=== PATIENT | female | born 1935 | race Caucasian/White ===

== ENCOUNTER 2017-05-16 15:48 | Emergency (ER) | payer OTHER ==
[~2017-05-16] VITALS: Ht 162.6 cm; Wt 68.0 kg
[~2017-05-16 15:48] MED LIST: AMIL5TAB15 PO; APIX5TAB3 PO; BRIM5DRO4 OP; CHOL20009 PO; CIPR500T94 PO; Cephalexin PO; Doxycycline Hyclate PO; FLEC150T PO; GLUC1TAB71 PO; LOSA25TA4 PO; MAGN400T3 PO; METO-239 PO; METO25TA2 PO; METO25TA4 PO; NEBI10TA3 PO; OMEP40CA5 PO; OXYC-327 PO; PHEN100T82 PO; PRAV40TA2 PO; TROL177. TP; Vesicare PO
--- NOTE | 2017-05-16 16:52 | RAD ---
3 views right elbow 05/16/2017 CLINICAL INDICATION: Fall with left elbow pain. COMPARISON: None. FINDINGS: There is a complete fracture of the olecranon process with moderate distraction and mild angulation. No evidence of fracture of the distal humerus or proximal radius. There is a small, 0.6 cm, ossific density at the medial aspect of the elbow on the AP view which may represent an ossific density on the lateral view at the level of the elbow articulation. There are multiple additional small smoothly marginated ossific densities about the elbow. Moderate elbow joint effusion. Large soft tissue swelling posterior elbow. IMPRESSION: 1. Complete fracture of the olecranon process with intra-articular extension and moderate distraction. 2. No evidence of radial head dislocation or coronoid process involvement. 3. Subcentimeter ossific density at the medial aspect of the elbow, likely represents a displaced fracture fragment. 4. Significant soft tissue swelling posterior elbow. Electronically signed by: Chuy Steele MD (05/16/2017 4:49 PM) [id number]
--- NOTE | 2017-05-16 17:00 | RAD ---
CT head and cervical spine without contrast 05/06/2017 CLINICAL INDICATION: Multiple falls with head trauma. COMPARISON: None. TECHNIQUE: Multiple CT images of the head and cervical spine were obtained without contrast. *One or more of the following individualized dose reduction techniques were utilized for this examination: 1. Automated exposure control. 2. Adjustment of the mA and/or kV according to patient size. 3. Use of iterative reconstruction technique. FINDINGS: Head: No acute intracranial hemorrhage or extra-axial fluid collection. No midline shift. The basal cisterns are patent. Mild generalized cerebral atrophy. The visualized mastoid air cells and paranasal sinuses are well aerated. Cervical spine: Minimal grade 1 retrolisthesis measuring 2 mm the foreign C5 and C5 on C6. The vertebral body heights are maintained. No evidence of acute cervical spine fracture. Atlantoaxial articulation is maintained. There is multilevel cervical disc degeneration with disc space narrowing, endplate sclerosis and marginal osteophyte formation to a moderate degree at C4-C5 and C5-C6. In conjunction with uncovertebral and facet hypertrophy, there is multilevel neural foraminal narrowing, greatest to a moderate degree on the right at C4-C5 and C5-C6. No significant spinal canal narrowing. There is calcified atheromatous disease of the common carotid arteries. The visualized lung apices are clear. IMPRESSION: Head: 1. No acute intracranial hemorrhage. 2. Mild generalized cerebral atrophy. Cervical spine: 1. No acute cervical spine fracture or traumatic malalignment. 2. Multilevel cervical spondylosis, as detailed above. Electronically signed by: Chuy Steele MD (05/16/2017 4:57 PM) [id number]
--- NOTE | 2017-05-16 17:04 | PHYS DOC ---
Past History Past Medical History: A-Fib, GERD, High Cholesterol, Hypertension, UTI Past Surgical History: Pacemaker, Other Alcohol Use: None Drug Use: None Adult General Chief Complaint Chief Complaint: ELBOW PROBLEM HPI HPI This is a pleasant 82-year-old female presenting to the emergency department after feeling weak and fell backwards landing on her right elbow and hitting the right side of her head. She denies passing out or loss of consciousness. After falling she was able to ambulate, however has swelling and pain in her right elbow along with a mild headache. She denies fevers or chills. She has a history of dehydration. Past medical history high blood pressure, afib, GERD and hyperlipidemia. Patient does take blood thinners. Eliquis 5 mg once a day. Past surgical history bilateral hip replacements and pacemaker. Allergies per EMR. Review of systems is negative for chest pain shortness of breath abdominal pain nausea vomiting. She denies any hip pain after walking. All other review of systems is negative unless otherwise noted in history of present illness. ED course: 82-year-old female presenting to the emergency department after falling and injuring her right elbow and hitting her head. On arrival she is GCS of 15. She is well-appearing she has an abrasion on her right forehead without laceration. No depressed skull fracture. Her elbow is swollen and painful to palpation with very minimal range of motion due to pain. X-ray of the elbow shows a fracture. Head CT obtained along with neck CT. CT of the head and neck is negative for acute pathology. I discussed the case with our orthopedic surgeon Dr. Bower who recommends transfer to [facility] for admission to the hospital for surgical repair. The patient was then transferred for further treatment. Review of Systems Review of Systems SEE ABOVE. Allergies Allergies Allergies Coded Allergies Type Severity Reaction Last Updated Verified Sulfa (Sulfonamide Antibiotics) Allergy Intermediate Hives 05/16/17 Yes acetaminophen Allergy Intermediate Rash 04/23/15 Yes codeine Allergy Intermediate Rash 04/23/15 Yes metaxalone Allergy Intermediate Unknown 04/23/15 Yes nitrofurantoin Allergy Intermediate Itching 04/23/15 Yes sulfamethoxazole Allergy Intermediate Rash 04/23/15 Yes trimethoprim Allergy Intermediate Rash 04/23/15 Yes Physical Exam Physical Exam SEE ABOVE General Appearance alert, cooperative, no distress, responsive Head Normocephalic, with mild abrasion to the right forehead. Eyes conjunctivae/corneas clear. PERRL, EOM's intact. Ears normal external ears Nose Nares normal. Septum midline. Mucosa normal. No drainage or sinus tenderness. Throat no blood or lacerations, normal alignment Neck supple, symmetrical, trachea midline Back/Spine symmetric, normal curvature. ROM normal, no abrasions, no tenderness to palpation, no step-offs Lungs clear to auscultation bilaterally Chest Wall normal ribcage without tenderness to palpation, crepitus or emphysema Heart reg rate and regular rhythm, S1, S2 normal, no murmur, click, rub or gallop Abdomen soft, non-tender. Bowel sounds normal. No masses, no organomegaly Pelvic stable Extremities patient's right upper extremity shows deformity of the right elbow. Otherwise nontender wrist and shoulder. Normal 2 second cap refill on the right upper extremity with palpable pulse and normal sensation in the hand. Normal motor function of the hand as well. The remainder the extremities are nontender with normal range of motion of the joints. 2 second cap refill distally palpable pulse and normal motor and sensory function of the distal extremities otherwise. Pulses 2+ and symmetric Skin Skin color, texture, turgor normal. No rashes or lesions Neurologic Grossly normal Eye opening: (4) spontaneous Best motor response: (6) obeys verbal command Best verbal response: (5) oriented and converses Total [place] (E + M + V) = 15 Current Patient Data Vital Signs Vital Signs Date Time Temp Pulse Resp B/P (MAP) Pulse Ox O2 Delivery O2 Flow Rate FiO2 05/16/17 15:50 97.6 60 18 97 Room Air EKG EKG [] Radiology/Procedures Radiology/Procedures [] Course & Med Decision Making Course & Med Decision Making Pertinent Labs and Imaging studies reviewed. (See chart for details) [] Dragon Disclaimer Dragon Disclaimer This electronic medical record was generated, in whole or in part, using a voice recognition dictation system. Departure Departure: Impression: Primary Impression: Elbow pain, right Additional Impressions: Abrasion head HX: anticoagulation Disposition: 02 [place]: [place] Referrals: ADELA ENGEL (PCP) Problem Qualifiers TRICE ALLEN MD May 16, 2017 17:04
[2017-05-16 17:15] LABS: BASO % 1 % (0-3); EOS # 0.3 x10^3/uL (0.0-0.7); EOS % 4 % (0-3); HEMATOCRIT 36.3 % (36.0-47.0); HEMOGLOBIN 12.4 g/dL (12.0-15.5); LYMPH # 0.7 x10^3/uL (1.0-4.8); LYMPH % 8 % (24-48); MEAN CORPUSCULAR HEMOGLOBIN 34 pg (25-35); MEAN CORPUSCULAR HGB CONC 34 g/dL (31-37); MEAN CORPUSCULAR VOLUME 99 fL (79-100); MONO # 0.7 x10^3/uL (0.0-1.1); MONO % 8 % (0-9); NEUT # 7.1 x10^3uL (1.8-7.7); NEUT % 80 % (31-73); PLATELET COUNT 249 x10^3/uL (140-400); RED BLOOD COUNT 3.67 x10^6/uL (3.50-5.40); RED CELL DISTRIBUTION WIDTH 13.2 % (11.5-14.5); WHITE BLOOD COUNT 8.8 x10^3/uL (4.0-11.0)
[2017-05-16 17:24] LABS: ALBUMIN 3.6 g/dL (3.4-5.0); ALK PHOS 80 U/L (46-116); ALT (SGPT) 22 U/L (14-59); ANION GAP 9 (6-14); AST (SGOT) 33 U/L (15-37); BLOOD UREA NITROGEN 19 mg/dL (7-20); CARBON DIOXIDE 23 mmol/L (21-32); CHLORIDE 94 mmol/L (98-107); CREATININE 1.4 mg/dL (0.6-1.0); DIRECT BILIRUBIN < 0.1 mg/dL (0.0-0.2); GFR 35.9; GLUCOSE 135 mg/dL (70-99); LIPASE 252 U/L (73-393); POTASSIUM 4.8 mmol/L (3.5-5.1); SODIUM 126 mmol/L (136-145); TOTAL BILIRUBIN 0.4 mg/dL (0.2-1.0); TOTAL PROTEIN 7.6 g/dL (6.4-8.2)
[2017-05-16 17:39] LABS: BILIRUBIN,URINE NEG (NEG); CLARITY,URINE CLOUDY; COLOR,URINE YELLOW; GLUCOSE,URINE NEG (NEG)
[2017-05-16 17:40] LABS: BACTERIA,URINE 0 /HPF (0-FEW); NITRITE,URINE NEG (NEG); SQUAMOUS EPITHELIAL CELL,UR MANY /LPF; UROBILINOGEN,URINE 0.2 mg/dL (0.2 mg/dL); WBC,URINE >40 /HPF (0-4)
--- NOTE | 2017-05-16 18:16 | EKG ---
[address] [address] Test Date: 2017-05-16 Test Time: 17:07:37 Pat Name: JONES RESENDEZ Department: Room: Gender: F Therapeutic Program Worker: ANEESH : 1935 Requested By: TRICE ALLEN Order Number: [id number] Reading MD: Measurements Intervals [place] Rate: 60 P: 0 [place]: 212 QRS: -72 QRSD: 240 T: 97 QT: 532 QTc: 537 Interpretive Statements SINUS RHYTHM ABNORMAL LEFT AXIS DEVIATION NON SPECIFIC INTRAVENTRICULAR BLOCK QRS(T) CONTOUR ABNORMALITY CONSIDER ANTEROSEPTAL MYOCARDIAL DAMAGE ABNORMAL ECG RI6.01 No previous ECG available for comparison
[2017-05-16] MEDS ORDERED: ONDANSETRON PF 4 MG/2 ML VIAL. IV ONE (18:45)
[2017-05-16 19:28] VITALS: BP 197/83
== END 2017-05-16 19:30 | disposition short-term general hospital (02) ==
LOC: ER 15:48
DX: M25.521 Pain in right elbow (principal); S00.81XA Abrasion of other part of head, initial encounter; I48.91 Unspecified atrial fibrillation; E78.00 Pure hypercholesterolemia, unspecified; I10 Essential (primary) hypertension; K21.9 Gastro-esophageal reflux disease without esophagitis; Z87.440 Personal history of urinary (tract) infections; Z79.01 Long term (current) use of anticoagulants; Z95.0 Presence of cardiac pacemaker; Z88.2 Allergy status to sulfonamides; Z88.6 Allergy status to analgesic agent; Z88.5 Allergy status to narcotic agent; Z88.1 Allergy status to other antibiotic agents; Z88.8 Allergy status to other drugs, medicaments and biological substances; W18.09XA Striking against other object with subsequent fall, initial encounter; Y93.89 Activity, other specified; Y99.8 Other external cause status; Y92.89 Other specified places as the place of occurrence of the external cause
CPT/HCPCS: 36415; 70450; 72125; 73080; 80048; 80076; 81001; 83690; 84484; 85025; 87086; 93005; 96374; 96375; 96376; 99285; J2405; J3010

== ENCOUNTER 2018-05-18 14:46 | Observation (INO) | payer OTHER ==
[~2018-05-18] VITALS: Ht 162.6 cm; Wt 67.4 kg
[~2018-05-18 14:46] MED LIST changes: +APIXABAN 5 MG TABLET. PO SCH; +BRIMONIDINE 0.2% OPHTH SOLUTION 5ML BOTTLE. OU SCH; +DICLOFENAC SODIUM 1% TOPICAL GEL 100GM TUBE. TP SCH; +DRONEDARONE HCL 400 MG TABLET PO SCH; +LOSA25TA11 PO; -LOSA25TA4 PO; -OXYC-327 PO; +OXYC1TAB19 PO
[2018-05-18] MEDS ORDERED: KETOROLAC 30 MG/ML VIAL. ONE (15:27)
[2018-05-18] MEDS ORDERED: IV NORMAL SALINE 1,000ML 1,000 ML IV ONE (15:30)
[2018-05-18] MEDS ORDERED: KETOROLAC 30 MG/ML VIAL. IV ONE (15:30)
--- NOTE | 2018-05-18 16:07 | RAD ---
CT study of the abdomen and pelvis without contrast Clinical indications: Bilateral flank pain with hematuria. COMPARISON: None available. TECHNIQUE: Noncontrast helical CT scanning of the abdomen and pelvis was performed. Without contrast, the sensitivity to detect organ pathology and GI tract pathology is decreased. PQRS compliance Statement One or more of the following individualized dose reduction techniques were utilized for this study: 1. Automated exposure control 2. Adjustment of the mA and/or kV according to patient size 3. Use of iterative reconstruction technique FINDINGS: The liver and spleen and pancreas are unremarkable on the noncontrast study. Gallbladder is normal and no extrahepatic biliary ductal dilatation is seen. No adrenal mass is evident. No hydronephrosis or hydroureter or ureteral stone or renal stone is evident. Both distal ureters and urinary bladder are obscured due to streaking artifact from metallic prostheses of both hips. There is an small air-fluid level within the anterior aspect of the dome of the urinary bladder. There is calcified atheromatous disease of the abdominal aorta and superior mesenteric artery and both main renal arteries the aorta and celiac artery and the common iliac arteries bilaterally. There is aneurysm of the distal abdominal aorta which measures up to 4.0 cm in greatest dimension. No enlarged abdominal or pelvic lymphadenopathy is evident. No uterine enlargement is seen given the streaking artifact. No dominant ovarian cyst or mass is evident. There is sigmoid diverticulosis present. There is segmental wall thickening of the mid sigmoid colon and this area is not well visualized due to the streaking artifact. This is best seen on images 103 through 107 and series 2. Evaluation for diverticulitis involving the sigmoid colon is difficult to the streaking artifact. No free fluid or free air or mesenteric edema is seen otherwise. A small hiatal hernia is evident. No lung base consolidation is seen. No lytic process is seen. IMPRESSION: Segmental wall thickening of mid sigmoid colon is seen. Sigmoid diverticulosis is seen. Evaluation for diverticulitis is difficult given the streaking artifact from 2 metallic prostheses of the hips. Survey, malignancy is a possibility as well. Direct endoscopy is recommended if this has not been performed recently. Distal abdominal aortic aneurysm measuring up to 4.0 cm in greatest caliber. A small air-fluid level is seen within the urinary bladder which most likely is secondary to recent catheterization or the short length of the female urethra. No obvious urinary bladder wall thickening or adjacent bowel wall thickening is seen to indicate a bladder bowel fistula but this portion of the study is somewhat compromised by the streaking artifact. No urinary tract stone or hydronephrosis or hydroureter. Electronically signed by: Stoney Marquez MD (05/18/2018 4:04 PM) [place] [id number]
[2018-05-18 16:29] LABS: BASO % 0 % (0-3); EOS # 0.4 x10^3/uL (0.0-0.7); EOS % 5 % (0-3); HEMATOCRIT 34.7 % (36.0-47.0); HEMOGLOBIN 11.7 g/dL (12.0-15.5); LYMPH # 0.8 x10^3/uL (1.0-4.8); LYMPH % 10 % (24-48); MEAN CORPUSCULAR HEMOGLOBIN 34 pg (25-35); MEAN CORPUSCULAR HGB CONC 34 g/dL (31-37); MEAN CORPUSCULAR VOLUME 101 fL (79-100); MONO # 0.7 x10^3/uL (0.0-1.1); MONO % 8 % (0-9); NEUT # 6.2 x10^3uL (1.8-7.7); NEUT % 76 % (31-73); PLATELET COUNT 288 x10^3/uL (140-400); RED BLOOD COUNT 3.44 x10^6/uL (3.50-5.40); WHITE BLOOD COUNT 8.1 x10^3/uL (4.0-11.0)
--- NOTE | 2018-05-18 16:43 | PHYS DOC ---
Past History Past Medical History: Other Past Surgical History: Hip Replacement Alcohol Use: None Drug Use: None Adult General Chief Complaint Chief Complaint: FLANK PAIN HPI HPI 83-year-old female presents with increased urinary frequency and dysuria. Patient is concerned about possible kidney stone. She has a history of bladder and kidney infections. She denies fever or chills at home. Patient's also had one episode of vomiting and diarrhea. She has been eating and drinking normally otherwise. Review of Systems Review of Systems Constitutional: Denies fever or chills [] Eyes: Denies change in visual acuity, redness, or eye pain [] HENT: Denies nasal congestion or sore throat [] Respiratory: Denies cough or shortness of breath [] Cardiovascular: No additional information not addressed in HPI [] GI: Denies abdominal pain, nausea, vomiting, bloody stools or diarrhea [] : Dysuria and urinary frequency[] Musculoskeletal: Denies back pain or joint pain [] Integument: Denies rash or skin lesions [] Neurologic: Denies headache, focal weakness or sensory changes [] Endocrine: Denies polyuria or polydipsia [] All other systems were reviewed and found to be within normal limits, except as documented in this note. Current Medications Current Medications Current Medications Medications (Trade) Dose Ordered Sig/Juliana Start Time Stop Time Status Last Admin Dose Admin Ketorolac Tromethamine (Toradol 30mg Vial) 30 mg STK-MED ONCE 05/18/18 15:27 05/18/18 15:37 DC Sodium Chloride 1,000 ml @ 1,000 mls/hr 1X ONCE 05/18/18 15:30 05/18/18 16:29 DC 05/18/18 15:30 1,000 MLS/HR Allergies Allergies Allergies Coded Allergies Type Severity Reaction Last Updated Verified Sulfa (Sulfonamide Antibiotics) Allergy Intermediate Hives 05/16/17 Yes acetaminophen Allergy Intermediate Rash 04/23/15 Yes codeine Allergy Intermediate Rash 04/23/15 Yes metaxalone Allergy Intermediate Unknown 04/23/15 Yes nitrofurantoin Allergy Intermediate Itching 04/23/15 Yes sulfamethoxazole Allergy Intermediate Rash 04/23/15 Yes trimethoprim Allergy Intermediate Rash 04/23/15 Yes Physical Exam Physical Exam Constitutional: Well developed, well nourished, no acute distress, non-toxic appearance. [] HENT: Normocephalic, atraumatic, bilateral external ears normal, oropharynx moist, no oral exudates, nose normal. [] Eyes: PERRLA, EOMI, conjunctiva normal, no discharge. [] Neck: Normal range of motion, no tenderness, supple, no stridor. [] Cardiovascular:Heart rate regular rhythm, no murmur [] Lungs & Thorax: Bilateral breath sounds clear to auscultation [] Abdomen: Bowel sounds normal, soft, suprapubic tenderness, no masses, no pulsatile masses. [] Skin: Warm, dry, no erythema, no rash. [] Back: No tenderness, no CVA tenderness. [] Extremities: No tenderness, no cyanosis, no clubbing, ROM intact, no edema. [] Neurologic: Alert and oriented X 3, normal motor function, normal sensory function, no focal deficits noted. [] Psychologic: Affect normal, judgement normal, mood normal. [] Current Patient Data Vital Signs Vital Signs Date Time Temp Pulse Resp B/P (MAP) Pulse Ox O2 Delivery O2 Flow Rate FiO2 05/18/18 15:04 98.1 60 18 100 Room Air Lab Results Laboratory Tests Test 05/18/18 15:56 White Blood Count 8.1 x10^3/uL (4.0-11.0) Red Blood Count 3.44 x10^6/uL (3.50-5.40) L Hemoglobin 11.7 g/dL (12.0-15.5) L Hematocrit 34.7 % (36.0-47.0) L Mean Corpuscular Volume 101 fL (79-100) H Mean Corpuscular Hemoglobin 34 pg (25-35) Mean Corpuscular Hemoglobin Concent 34 g/dL (31-37) Red Cell Distribution Width 13.0 % (11.5-14.5) Platelet Count 288 x10^3/uL (140-400) Neutrophils (%) (Auto) 76 % (31-73) H Lymphocytes (%) (Auto) 10 % (24-48) L Monocytes (%) (Auto) 8 % (0-9) Eosinophils (%) (Auto) 5 % (0-3) H Basophils (%) (Auto) 0 % (0-3) Neutrophils # (Auto) 6.2 x10^3uL (1.8-7.7) Lymphocytes # (Auto) 0.8 x10^3/uL (1.0-4.8) L Monocytes # (Auto) 0.7 x10^3/uL (0.0-1.1) Eosinophils # (Auto) 0.4 x10^3/uL (0.0-0.7) Basophils # (Auto) 0.0 x10^3/uL (0.0-0.2) EKG EKG [] Radiology/Procedures Radiology/Procedures [] Impressions: CT study of the abdomen and pelvis without contrast Clinical indications: Bilateral flank pain with hematuria. COMPARISON: None available. TECHNIQUE: Noncontrast helical CT scanning of the abdomen and pelvis was performed. Without contrast, the sensitivity to detect organ pathology and GI tract pathology is decreased. PQRS compliance Statement One or more of the following individualized dose reduction techniques were utilized for this study: 1. Automated exposure control 2. Adjustment of the mA and/or kV according to patient size 3. Use of iterative reconstruction technique FINDINGS: The liver and spleen and pancreas are unremarkable on the noncontrast study. Gallbladder is normal and no extrahepatic biliary ductal dilatation is seen. No adrenal mass is evident. No hydronephrosis or hydroureter or ureteral stone or renal stone is evident. Both distal ureters and urinary bladder are obscured due to streaking artifact from metallic prostheses of both hips. There is an small air-fluid level within the anterior aspect of the dome of the urinary bladder. There is calcified atheromatous disease of the abdominal aorta and superior mesenteric artery and both main renal arteries the aorta and celiac artery and the common iliac arteries bilaterally. There is aneurysm of the distal abdominal aorta which measures up to 4.0 cm in greatest dimension. No enlarged abdominal or pelvic lymphadenopathy is evident. No uterine enlargement is seen given the streaking artifact. No dominant ovarian cyst or mass is evident. There is sigmoid diverticulosis present. There is segmental wall thickening of the mid sigmoid colon and this area is not well visualized due to the streaking artifact. This is best seen on images 103 through 107 and series 2. Evaluation for diverticulitis involving the sigmoid colon is difficult to the streaking artifact. No free fluid or free air or mesenteric edema is seen otherwise. A small hiatal hernia is evident. No lung base consolidation is seen. No lytic process is seen. IMPRESSION: Segmental wall thickening of mid sigmoid colon is seen. Sigmoid diverticulosis is seen. Evaluation for diverticulitis is difficult given the streaking artifact from 2 metallic prostheses of the hips. Survey, malignancy is a possibility as well. Direct endoscopy is recommended if this has not been performed recently. Distal abdominal aortic aneurysm measuring up to 4.0 cm in greatest caliber. A small air-fluid level is seen within the urinary bladder which most likely is secondary to recent catheterization or the short length of the female urethra. No obvious urinary bladder wall thickening or adjacent bowel wall thickening is seen to indicate a bladder bowel fistula but this portion of the study is somewhat compromised by the streaking artifact. No urinary tract stone or hydronephrosis or hydroureter. Electronically signed by: Debra Marquez MD (05/18/2018 4:04 PM) [facility] DICTATED AND SIGNED BY: DEBRA MARQUEZ MD DATE: 05/18/18 1604 CC: SOFI LINO DO; ADELA ENGEL Course & Med Decision Making Course & Med Decision Making Pertinent Labs and Imaging studies reviewed. (See chart for details) The patient's labs are significant for anemia with a hemoglobin 11.7. CMP is pending. Her urinalysis does show UTI. I will treat her with 1 g of Rocephin in the ED followed by Cefdinir at home. The patient's CT scan is significant for several findings. See official report from more details. It is suggestive of diverticulitis. I will treat her with Augmentin for 10 days and give her first dose in the ED. The patient's CMP shows an elevated creatinine of 2.3. Review of her chart shows her previous being 1.4. I am unsure if this is chronic or just an acute situation. I am going to admit the patient for further management of all of these issues. Discussed the patient with Dr. Strickland and he has agreed to admit the patient for further management. [] Dragon Disclaimer Dragon Disclaimer This electronic medical record was generated, in whole or in part, using a voice recognition dictation system. Departure Departure: Impression: Primary Impression: UTI (urinary tract infection) Additional Impressions: Diverticulitis Acute kidney injury superimposed on CKD Disposition: ADMITTED INPATIENT Admitting Physician: Glen Strickland Condition: STABLE Referrals: ADELA ENGEL (PCP) Problem Qualifiers Primary Impression: UTI (urinary tract infection) Urinary tract infection type: acute cystitis Hematuria presence: with hematuria Qualified Codes: N30.01 - Acute cystitis with hematuria SOFI LINO DO May 18, 2018 16:43
[2018-05-18 16:44] LABS: CALCIUM 9.3 mg/dL (8.5-10.1); CREATININE 2.3 mg/dL (0.6-1.0); GFR 20.2; POTASSIUM 4.6 mmol/L (3.5-5.1); TOTAL BILIRUBIN 0.5 mg/dL (0.2-1.0); TOTAL PROTEIN 7.9 g/dL (6.4-8.2)
[2018-05-18] MEDS ORDERED: AMOXICILLIN/K CLAV 875/125MG TABLET. PO ONE (16:45)
[2018-05-18] MEDS ORDERED: IV NORMAL SALINE 50ML 50 ML ONE (17:08)
[2018-05-18] MEDS ORDERED: cefTRIAXone SODIUM 1 GM VIAL ONE (17:08)
[2018-05-18] MEDS ORDERED: BRIM5DRO3 OU (17:57)
[2018-05-18] MEDS ORDERED: FURO40TA4 PO (17:57)
[2018-05-18] MEDS ORDERED: DICL100G28 TOP (17:57)
[2018-05-18] MEDS ORDERED: SPIR25TA5 PO (17:57)
[2018-05-18] MEDS ORDERED: METO50TA29 PO (17:57)
[2018-05-18] MEDS ORDERED: DRON400T PO (17:57)
[2018-05-18] MEDS ORDERED: ONDANSETRON PF 4 MG/2 ML VIAL. IV PRN (18:30)
[2018-05-18 21:15] VITALS: BP 183/78
[2018-05-18] MEDS: ACETAMINOPHEN 325 MG TABLET PO PRN (21:50)
[2018-05-18] MEDS: IV NORMAL SALINE 1,000ML 1,000 ML IV SCH (21:51)
[2018-05-18] MEDS ORDERED: LOSA25TA PO (21:55)
[2018-05-18] MEDS ORDERED: OMEP20TA8 PO (21:57)
[2018-05-18] MEDS: APIXABAN 5 MG TABLET. PO SCH (22:40)
[2018-05-18] MEDS: LOSARTAN 25 MG TABLET. PO SCH (22:40)
[2018-05-18] MEDS: PRAVASTATIN 20 MG TABLET. PO SCH (22:40)
[2018-05-18] MEDS: DICLOFENAC SODIUM 1% TOPICAL GEL 100GM TUBE. TP SCH (22:41)
[2018-05-18] MEDS: DRONEDARONE HCL 400 MG TABLET PO SCH (22:41)
[2018-05-18] MEDS: BRIMONIDINE 0.2% OPHTH SOLUTION 5ML BOTTLE. OU SCH (22:41)
[2018-05-18 23:05] VITALS: BP 153/66
[2018-05-19] MEDS: ACETAMINOPHEN 325 MG TABLET PO PRN ×3 (03:30→19:52)
[2018-05-19 05:21] VITALS: BP 124/67
[2018-05-19 06:58] LABS: HEMATOCRIT 31.3 % (36.0-47.0); HEMOGLOBIN 10.6 g/dL (12.0-15.5); RED BLOOD COUNT 3.1 x10^6/uL (3.50-5.40); RED CELL DISTRIBUTION WIDTH 13.1 % (11.5-14.5); WHITE BLOOD COUNT 7.8 x10^3/uL (4.0-11.0)
[2018-05-19 07:01] LABS: CALCIUM 8.6 mg/dL (8.5-10.1); CREATININE 2.1 mg/dL (0.6-1.0); GFR 22.4; POTASSIUM 4.9 mmol/L (3.5-5.1)
[2018-05-19] MEDS: IV NORMAL SALINE 1,000ML 1,000 ML IV SCH ×2 (08:02→21:00)
[2018-05-19] MEDS: DICLOFENAC SODIUM 1% TOPICAL GEL 100GM TUBE. TP SCH ×3 (08:02→20:15)
[2018-05-19] MEDS: BRIMONIDINE 0.2% OPHTH SOLUTION 5ML BOTTLE. OU SCH ×2 (08:02→20:17)
[2018-05-19] MEDS: APIXABAN 5 MG TABLET. PO SCH ×2 (08:03→20:17)
[2018-05-19] MEDS: DRONEDARONE HCL 400 MG TABLET PO SCH ×2 (08:03→20:16)
[2018-05-19] MEDS: CHOLECALCIFEROL (VITAMIN D3) 1,000 UNIT TABLET PO SCH (08:04)
[2018-05-19] MEDS: METOPROLOL SUCC 24HR ER 50 MG TAB.ER.24H. PO SCH (08:04)
[2018-05-19] MEDS: PANTOPRAZOLE 40 MG TABLET. PO SCH (08:04)
[2018-05-19] MEDS: LOSARTAN 25 MG TABLET. PO SCH ×2 (08:06→20:17)
[2018-05-19] MEDS: FUROSEMIDE 20 MG TABLET PO SCH (08:06)
[2018-05-19] MEDS: SPIRONOLACTONE 25 MG TABLET PO SCH (08:06)
[2018-05-19 10:21] VITALS: BP 104/60
[2018-05-19 14:38] VITALS: BP 136/58
--- NOTE | 2018-05-19 15:50 | HP ---
ADMIT DATE: 05/18/2018 HISTORY OF PRESENT ILLNESS: The patient is an 83-year-old female patient who came to the Emergency Room with increased urinary frequency, dysuria. She was concerned about the possibility of kidney stone. She has a history of bladder and kidney infections; however, she denied any chills, rigors, or fever. Her biggest problem is dysuria, frequency. Denied any episodes of vomiting or diarrhea. She was evaluated in the Emergency Room and was admitted with a urinary tract infection. She had a CT scan of the abdomen and pelvis, which was somewhat inconclusive, possibility of diverticulitis, there is some segmental wall thickening of the mid sigmoid colon is seen, sigmoid diverticulosis seen. However, evaluation for the diverticulitis is difficult given the streaking artifacts from 2 metallic prosthesis of the hips. She was started on IV fluid and IV Rocephin and continued with other medication. PAST MEDICAL HISTORY: Significant for hypertension, hyperlipidemia, congestive heart failure, likely chronic diastolic congestive heart failure as well as sick sinus syndrome. PAST SURGICAL HISTORY: Significant for permanent pacemaker placement, bilateral total hip arthroplasty, bilateral carpal tunnel release, trigger finger release, left elbow fracture, bilateral cataract extraction. ALLERGIES: SHE IS ALLERGIC TO SULFA DRUGS, SULFAMETHOXAZOLE, TRIMETHOPRIM, NITROFURANTOIN, METAXALONE, CODEINE, AND ACETAMINOPHEN. MEDICATIONS: She is currently on following medications: She is on apixaban 5 mg twice a day, dronedarone 400 mg twice a day, pravastatin 40 mg 2 tablets at bedtime, metoprolol succinate 50 mg once a day, losartan potassium 75 mg once a day, spironolactone 12.5 mg once a day, diclofenac sodium 1 gram topically 3 times a day, furosemide 20 mg once a day, brimonidine tartrate 1 drop to both eyes, omeprazole 20 mg twice a day, cholecalciferol 2000 international unit once a day. FAMILY HISTORY: She has 2 brothers, both . Her sister of Alzheimer disease and father at age of 77 because of CVA. Mother at age of 77 because of colon cancer. SOCIAL HISTORY: She is , has 1 son. She never smoked, does not drink alcohol. 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 REVIEW OF SYSTEMS: The patient has had bilateral cataract extraction and has also glaucoma, but denied any macular degeneration. Denied any earache, tinnitus, or sensorineural deafness. Denied any nosebleeds, stuffy nose, or postnasal drip. Denied any sore throat, sore tongue, toothache, hoarseness of voice, or difficulty swallowing. Denied any nausea, vomiting, diarrhea, or constipation. Denied any hematemesis, melena, or hematochezia. Did complain of dysuria and frequency, but denied any hematuria. Denied any chest pain, shortness of breath, orthopnea, paroxysmal nocturnal dyspnea. Denied any cough, phlegm, or hemoptysis. Denied any chills, rigors, or fever. Denied any dizziness, lightheadedness, or vertigo. PHYSICAL EXAMINATION: GENERAL: On examining her, she looked well and was clearly in no apparent respiratory distress, slightly pale, but no jaundice, cyanosis, or thyromegaly. No jugular venous distention. No limb edema. VITAL SIGNS: Her heart rate was 60, blood pressure was 176/78, temperature was 97, respiratory rate 20, and oxygen saturation was 98% on room air. HEAD, EYES, EARS, NOSE, AND THROAT: Showed normocephalic, atraumatic. NECK: Supple. HEART: Showed normal first and second heart sounds. No gallop, rub, or murmur. CHEST: Clear to auscultation. No crepitation or rhonchi. ABDOMEN: Distended, soft, nontender. NEUROLOGIC: She is awake, alert, responding appropriately. All cranial nerves intact. EXTREMITIES: She moves extremities without difficulty. She ambulates with a quad cane. LABORATORY DATA: Her urinalysis showed the urine was light yellow, cloudy, it was negative for glucose, bilirubin, ketones, pH was 6, specific gravity was 1.010. There is a trace of protein. There was nitrite positive. There were 3+ leukocyte esterase. Culture and sensitivity is still pending at the time of this dictation. Her white cell count was 8100, hemoglobin 11.7, hematocrit 34, MCV 101, and platelet count of 288,000 with normal manual differential. Her chemistry showed a serum sodium 130, potassium 4.6, chloride 96, bicarbonate 23, anion gap of 11, BUN 41, creatinine 2.3, estimated GFR was 20 mL per minute. Her glucose 117, calcium was 9.3. Total bilirubin, AST, ALT, alkaline phosphatase were normal. Her total protein was 7.9, albumin was 4. IMPRESSION: In summary, this is an 83-year-old female patient who came in with a complaint of recurrent bouts of dysuria, frequency. Her urinalysis was suggestive of a urinary tract infection with positive nitrite and leukocyte esterase. She was started on IV fluid and IV Rocephin. We will continue with that. Apparently, her creatinine was 2.3 and BUN of 41 while in April. A year ago, her creatinine was 1.4. The plan is to continue the IV fluid, IV antibiotic. Await the result of the culture and sensitivity. She was admitted for basically, she has multiple other medical problems including hypertension, hyperlipidemia. She has also atrial fibrillation, glaucoma, and gastroesophageal reflux disease, obviously with acute on chronic kidney injury. JEREMY KIRBY MD DR: BRIAN/phoebe JOB#: [id number] / [id number]
[2018-05-19 19:16] VITALS: BP 164/82
[2018-05-19] MEDS: LACTOBACILLUS RHAMNOSUS GG 1 CAPSULE. PO SCH (20:17)
[2018-05-19] MEDS: PRAVASTATIN 20 MG TABLET. PO SCH (20:17)
--- NOTE | 2018-05-19 21:36 | PN ---
DATE: 05/19/2018 SUBJECTIVE: The patient is resting slightly propped up in bed, stating that she is feeling much better. She has been in and out of bed last night, yesterday; however, today she seemed her infection is improving and she is not as going to the bathroom as often. Her kidney function was also noted to be impaired. Her creatinine was 2.3 and we did start her on IV fluid yesterday. She has also hyponatremia and her creatinine is trending down. Her last creatinine available record is 1.4 year ago. We did contact Dr. Lowe office to get to see if she has any other values in between for comparison. PHYSICAL EXAMINATION: GENERAL: When I examined her today, she looked pale, but no jaundice, cyanosis, or thyromegaly. No jugular venous distension. No lower limb edema. VITAL SIGNS: Her heart rate was 60, blood pressure 136/58, temperature was 97.2, respiratory rate was 20, and oxygen saturation was 99%. The rest of clinical examination is stable, has not really changed. Her intake was 2500 and output was incompletely recorded. LABORATORY DATA: Her lab work this morning showed serum sodium is slightly up at 131, potassium 4.9, chloride 100, bicarbonate 22, anion gap of 9, BUN 39, creatinine 2.1, estimated GFR was 22 mL per minute. Her glucose was 84, calcium was 8.6. ASSESSMENT: Urinary tract infection; culture and sensitivity is still pending at the time of dictation; hyponatremia resolving; acute kidney injury, improving. Her creatinine is down from 2.3-2.1. Other medical problems include hypertension, hyperlipidemia, and congestive heart failure, seems to be clinically well compensated. She is also known to have sick sinus syndrome. JEREMY KIRBY MD DR: BRIAN/phoebe JOB#: [id number] / [id number]
[2018-05-19 22:51] VITALS: BP 145/78
[2018-05-20] MEDS: ACETAMINOPHEN 325 MG TABLET PO PRN (03:35)
[2018-05-20 05:26] VITALS: BP 171/81
[2018-05-20 06:06] LABS: CALCIUM 8.5 mg/dL (8.5-10.1); CREATININE 1.6 mg/dL (0.6-1.0); GFR 30.7; POTASSIUM 5.1 mmol/L (3.5-5.1)
[2018-05-20] MEDS: CHOLECALCIFEROL (VITAMIN D3) 1,000 UNIT TABLET PO SCH (08:55)
[2018-05-20] MEDS: LOSARTAN 25 MG TABLET. PO SCH (08:55)
[2018-05-20] MEDS: APIXABAN 5 MG TABLET. PO SCH (08:55)
[2018-05-20] MEDS: PANTOPRAZOLE 40 MG TABLET. PO SCH (08:55)
[2018-05-20] MEDS: METOPROLOL SUCC 24HR ER 50 MG TAB.ER.24H. PO SCH (08:55)
[2018-05-20] MEDS: LACTOBACILLUS RHAMNOSUS GG 1 CAPSULE. PO SCH (08:55)
[2018-05-20 08:56] VITALS: BP 171/81
[2018-05-20] MEDS: SPIRONOLACTONE 25 MG TABLET PO SCH (08:56)
[2018-05-20] MEDS: DICLOFENAC SODIUM 1% TOPICAL GEL 100GM TUBE. TP SCH (08:56)
[2018-05-20] MEDS: DRONEDARONE HCL 400 MG TABLET PO SCH (08:56)
[2018-05-20] MEDS: FUROSEMIDE 20 MG TABLET PO SCH (08:56)
[2018-05-20] MEDS: BRIMONIDINE 0.2% OPHTH SOLUTION 5ML BOTTLE. OU SCH (08:56)
[2018-05-20] MEDS ORDERED: CEFP200T PO (09:46)
--- NOTE | 2018-05-20 10:33 | DS ---
DATE OF DISCHARGE: 05/20/2018 HISTORY OF PRESENT ILLNESS: The patient is an 83-year-old female patient who was admitted through the Emergency Room complaining of increased urinary frequency and dysuria. She was concerned about severity of kidney stone. She has history of bladder and kidney infection. Denied any chills, rigors, or fever. Denied dysuria or frequency. Denied any episode of vomiting or diarrhea. She was evaluated in the Emergency Room and was admitted with a urinary tract infection and in retrospect, she also has acute on chronic kidney injury as her creatinine was up to 2.3 and her baseline is about 1.4-1.5. Her CT scan of the abdomen and pelvis was somewhat inconclusive for possibility of diverticulitis as there is some segmental wall thickening of the mid sigmoid colon, has multiple sigmoid diverticula; however, evaluation for diverticulitis is difficult given the streaking artifacts from 2 metallic prosthesis of the hips. She was started on IV fluid and IV Rocephin. She has no leukocytosis. Her urinalysis done at the primary care physician's was positive for nitrite and leukocyte esterase. She has also multiple leukocyturia; however, the culture is still pending at the time of this dictation. Her dysuria and frequency has improved and her kidney function has steadily improved. Her creatinine came down from 2.3 to 1.6; has had no more dysuria, frequency, and a decision was made to discharge her home to follow with her primary care physician, to continue with cefpodoxime 100 mg twice a day for 5 more days. PHYSICAL EXAMINATION: GENERAL: When I saw her today, she looked well and was clearly in no apparent respiratory distress, slightly pale; no jaundice, cyanosis, or thyromegaly. No jugular venous distension. No limb edema. VITAL SIGNS: Her heart rate was 60, blood pressure was 171/81, temperature was 97.3, respiratory rate was 20, and oxygen saturation was 99% on room air. HEAD, EYES, EARS, NOSE, AND THROAT: Normocephalic, atraumatic. NECK: Supple. HEART: Showed normal first and second sounds. No gallop or murmur. CHEST: Clear to auscultation. No crepitation or rhonchi. ABDOMEN: Scaphoid, soft, nontender. NEUROLOGIC: She is hard of hearing, but otherwise all cranial nerves intact. She moves extremities without difficulty. She actually ambulates with a quad cane. Her intake was 2500, no output was recorded. LABORATORY DATA: As of this morning showed that her serum sodium is 132, potassium 5.1, chloride 102, bicarbonate 23, anion gap of 7, BUN 30, creatinine 1.6, estimated GFR was 30 mL per minute. Her glucose was 94 and calcium was 8.5. As of yesterday, her white cell count was 7800, hemoglobin 11, hematocrit 31, MCV 101, and platelet count 231,000. DISCHARGE MEDICATIONS: She was discharged home to continue her apixaban 5 mg twice a day; brimonidine tartrate or Alphagan one drop to both eyes twice a day; cholecalciferol; vitamin D 2000 international units once a day; diclofenac sodium 100 grams gel 1 applied topically 2 times a day, dronedarone or Multaq 400 mg twice a day; furosemide 20 mg once a day; losartan potassium 75 mg daily; losartan potassium or Cozaar 25 mg at bedtime; metoprolol succinate 50 mg daily; omeprazole 20 mg once a day, pravastatin sodium 40 mg, she takes 2 tablets at bedtime; and spironolactone 25 mg once a day. She was also discharged on cefpodoxime 100 mg twice a day for 5 more days. FINAL DISCHARGE DIAGNOSES: 1. Urinary tract infection. 2. [id number] kidney injury, resolved. 3. She has multitude of other medical problems including atrial fibrillation/sick sinus syndrome with a permanent pacemaker, hypertension, hyperlipidemia, and chronic diastolic congestive heart failure. JEREMY KIRBY MD DR: BRIAN/phoebe JOB#: [id number] / [id number]
== END 2018-05-20 10:22 | disposition home or self-care (01) ==
LOC: ER 14:46 → INTOOBSV 18:15 → 1 SOUTH 18:15
PROVIDERS: ADMIT Internal Medicine; ATTEND Internal Medicine
DX: N39.0 Urinary tract infection, site not specified (principal); K57.32 Diverticulitis of large intestine without perforation or abscess without bleeding; N17.9 Acute kidney failure, unspecified; R10.9 Unspecified abdominal pain; N18.9 Chronic kidney disease, unspecified; R11.10 Vomiting, unspecified; R19.7 Diarrhea, unspecified; I71.4 Abdominal aortic aneurysm, without rupture; I13.0 Hypertensive heart and chronic kidney disease with heart failure and stage 1 through stage 4 chronic kidney disease, or unspecified chronic kidney disease; E78.5 Hyperlipidemia, unspecified; I49.5 Sick sinus syndrome; I50.32 Chronic diastolic (congestive) heart failure; Z95.0 Presence of cardiac pacemaker; Z82.3 Family history of stroke; Z96.643 Presence of artificial hip joint, bilateral; Z80.0 Family history of malignant neoplasm of digestive organs; Z98.42 Cataract extraction status, left eye; Z98.41 Cataract extraction status, right eye; Z82.0 Family history of epilepsy and other diseases of the nervous system; I48.91 Unspecified atrial fibrillation; H40.9 Unspecified glaucoma; K21.9 Gastro-esophageal reflux disease without esophagitis; E87.1 Hypo-osmolality and hyponatremia
CPT/HCPCS: 36415; 74176; 80048; 80053; 85025; 85027; 96361; 96365; 96366; 99284; G0378; J0696; G0379; 99285-25; J7030

== ENCOUNTER 2018-11-29 21:22 | Emergency (ER) | payer OTHER ==
[~2018-11-29] VITALS: Ht 162.6 cm; Wt 65.8 kg
[~2018-11-29 21:22] MED LIST changes: -APIXABAN 5 MG TABLET. PO SCH; +BRIM5DRO3 OU; -BRIMONIDINE 0.2% OPHTH SOLUTION 5ML BOTTLE. OU SCH; +CEFP200T PO; +DICL100G28 TOP; -DICLOFENAC SODIUM 1% TOPICAL GEL 100GM TUBE. TP SCH; +DRON400T PO; -DRONEDARONE HCL 400 MG TABLET PO SCH; +FURO40TA4 PO; +LOSA25TA PO; -MAGN400T3 PO; +MAGN400T5 PO; +METO50TA29 PO; +OMEP20TA8 PO; +OMEP40CA45 PO; -OMEP40CA5 PO; +SPIR25TA5 PO
--- NOTE | 2018-11-29 21:25 | ED.ADGEN ---
Past History Past Medical History: UTI, Other Past Surgical History: Hip Replacement Alcohol Use: None Drug Use: None Adult General Chief Complaint Chief Complaint ".. I just turned too quick .. and lost my balance.. and hit my head against the wall... but I am on Eliquis anticoagulant for my A. fib.. and doctor said .. .I should come in and get a CT....".." I was just in [facility] maybe week to two weeks ago.. for not feeling right..." HPI HPI Patient is a 83 year old female who presents with above hx and complaints fall with head contusion. Posterior scalp has a 2 x 3 small centimeter area of contusion/hematoma. There is some mild paracervical muscle tenderness which lateralizes to the left. Patient denies any loss of consciousness. Patient denies other injury. Patient does have contusions on her elbow. Does have injection mendez from previous IV starts. Patient denies any dysrhythmia or chest pain or shortness of breath. Patient states this was just a balance issue because she turned too quickly. Review of Systems Review of Systems Constitutional: Denies fever or chills [] Eyes: Denies change in visual acuity, redness, or eye pain [] HENT: Denies nasal congestion or sore throat []Complaint of head injury. Respiratory: Denies cough or shortness of breath [] Cardiovascular: No additional information not addressed in HPI [] GI: Denies abdominal pain, nausea, vomiting, bloody stools or diarrhea [] : Denies dysuria or hematuria [] Musculoskeletal: Denies back pain or joint pain [] Integument: Denies rash or skin lesions [] Does have several areas of ecchymosis=various stages of healing. Neurologic: Denies headache, focal weakness or sensory changes [] Endocrine: Denies polyuria or polydipsia [] All other systems were reviewed and found to be within normal limits, except as documented in this note. Family History Family History Noncontributory Current Medications Current Medications Current Medications Medications (Trade) Dose Ordered Sig/Juliana Start Time Stop Time Status Last Admin Dose Admin Clonidine HCl (Catapres) 0.2 mg 1X ONCE 11/29/18 23:45 11/29/18 23:47 DC 11/29/18 23:46 0.2 MG Levofloxacin (Levaquin) 500 mg 1X ONCE 11/29/18 23:30 11/29/18 23:47 DC 11/29/18 23:42 500 MG Allergies Allergies Allergies Coded Allergies Type Severity Reaction Last Updated Verified Sulfa (Sulfonamide Antibiotics) Allergy Intermediate Hives 05/16/17 Yes acetaminophen Allergy Intermediate Rash 04/23/15 Yes codeine Allergy Intermediate Rash 04/23/15 Yes metaxalone Allergy Intermediate Unknown 04/23/15 Yes nitrofurantoin Allergy Intermediate Itching 04/23/15 Yes sulfamethoxazole Allergy Intermediate Rash 04/23/15 Yes trimethoprim Allergy Intermediate Rash 04/23/15 Yes Physical Exam Physical Exam Constitutional: Moderate acute distress, non-toxic appearance. [] HENT: Normocephalic, 2 x 3 cm hematoma posterior scalp, bilateral external ears normal, oropharynx moist, no oral exudates, nose normal. [] Eyes: PERRLA, EOMI, conjunctiva normal, no discharge. [] Neck: Normal range of motion, paracervical muscle tenderness, supple, no stridor. [] Cardiovascular: Irregular Heart rate and irregular rhythm, no murmur []PMI to the left Lungs & Thorax: Bilateral breath sounds equal at apex auscultation [] Abdomen: Bowel sounds normal, soft, no tenderness, no masses, no pulsatile masses. Old surgery scars[] Skin: Warm, dry, no erythema, no rash. Multiple areas of contusions and bony points. Different stages of healing Back: No tenderness, no CVA tenderness. [] Extremities: No tenderness, no cyanosis, no clubbing, ROM intact, no edema. [] Arthritic changes. Neurologic: Alert and oriented X 3, normal motor function, normal sensory function, no focal deficits noted. []DTRs are +2 patella and brachial. No drift. Is ambulatory. Psychologic: Affect anxious, judgement normal, mood normal. [] Current Patient Data Vital Signs Vital Signs Date Time Temp Pulse Resp B/P (MAP) Pulse Ox O2 Delivery O2 Flow Rate FiO2 11/29/18 23:46 60 199/89 Lab Results Laboratory Tests Test 11/29/18 22:40 Urine Collection Type Unknown Urine Color Yellow Urine Clarity Cloudy Urine pH 7.0 Urine Specific [place] 1.015 Urine Protein 30 mg/dl (NEG-TRACE) Urine Glucose (UA) Neg mg/dL (NEG) Urine Ketones (Stick) Neg mg/dL (NEG) Urine Blood Large (NEG) Urine Nitrite Pos (NEG) Urine Bilirubin Neg (NEG) Urine Urobilinogen Dipstick 0.2 mg/dL (0.2 mg/dL) Urine Leukocyte Esterase Large (NEG) Urine RBC 6-10 /HPF (0-2) Urine WBC >40 /HPF (0-4) Urine Squamous Epithelial Cells None /LPF Urine Bacteria Many /HPF (0-FEW) EKG EKG [] Radiology/Procedures Radiology/Procedures [][address] [address] IMAGING REPORT Signed PATIENT: JONES RESENDEZCOUNT: [id number] : 1935 LOCATION: ER AGE: 83 SEX: F EXAM STATUS: PRE ER ORD. PHYSICIAN: ANHTONY HUITRON MD REASON: Fall , head injury, headache, neck pain, on Eliquis PROCEDURE: CT HEAD AND CERVICAL SPINE WO CT Head W/O Contrast: History: Pain status post fall Comparison: none Axial images were obtained without contrast. There is moderate diffuse atrophy. There is no mass effect, extraaxial fluid collections or hydrocephalus. There is no focal loss of burrows-white matter distinction to suggest acute ischemia, i.e. stroke. Impression: No acute findings. End impression CT C-Spine without contrast: Clinical History: Technique: Axial helical images of the cervical spine were obtained without contrast, axial coronal and sagittal reconstruction was performed. Findings: There is no loss of vertebral body stature. There is no prevertebral soft tissue swelling. The vertebral bodies are well aligned. There is straightening of the normal cervical lordosis which can be positional or could be chronic. The C1-C2 relationship is normal. The visualized osseous structures appear normal. Evaluation of the central canal is limited without contrast. There is multiple posterior disc bulges resulting in flattening of the thecal sac. There does not appear to be gross flattening of the cervical cord. There is moderate narrowing of multiple neuroforamen. There is degenerative pannus posterior to the dens which causes effacement of CSF anterior to the cortical medullary junction. Impression: No acute findings. Clinical correlation suggested. PQRS Compliance Statement: One or more of the following individualized dose reduction techniques were utilized for this examination: 1. Automated exposure control 2. Adjustment of the mA and/or kV according to patient size 3. Use of iterative reconstruction technique Electronically signed by: Italo Lopez III, MD (11/29/2018 10:47 PM) [email or web address] DICTATED AND SIGNED BY: ITALO LOPEZ III, MD DATE: 11/29/18 2247 CC: ANTHONY HUITRON MD; ADELA ENGEL ~ Course & Med Decision Making Course & Med Decision Making Pertinent Labs and Imaging studies reviewed. (See chart for details) Ice packs as needed. Care to prevent.t falls. Hold the next dose of Eliquis. Follow-up hypertension with primary care. Return if any concerns. Follow up urine cultures. Take Levaquin 500 mg daily. Push fluids. Push vitamin C drinks. Return if any concerns [] Final Impression Final Impression 1. Fall[] 2. Head Injury 3. Hx. Afib on Eliquis 4. UTI Dragon Disclaimer Dragon Disclaimer This electronic medical record was generated, in whole or in part, using a voice recognition dictation system. Dragon Disclaimer This chart was dictated in whole or in part using Voice Recognition software in a busy, high-work load, and often noisy Emergency Department environment. It may contain unintended and wholly unrecognized errors or omissions. Dragon Disclaimer This chart was dictated in whole or in part using Voice Recognition software in a busy, high-work load, and often noisy Emergency Department environment. It may contain unintended and wholly unrecognized errors or omissions. ANTHONY HUITRON MD Nov 29, 2018 21:25
--- NOTE | 2018-11-29 22:50 | RAD ---
CT Head W/O Contrast: History: Pain status post fall Comparison: none Axial images were obtained without contrast. There is moderate diffuse atrophy. There is no mass effect, extraaxial fluid collections or hydrocephalus. There is no focal loss of burrows-white matter distinction to suggest acute ischemia, i.e. stroke. Impression: No acute findings. End impression CT C-Spine without contrast: Clinical History: Technique: Axial helical images of the cervical spine were obtained without contrast, axial coronal and sagittal reconstruction was performed. Findings: There is no loss of vertebral body stature. There is no prevertebral soft tissue swelling. The vertebral bodies are well aligned. There is straightening of the normal cervical lordosis which can be positional or could be chronic. The C1-C2 relationship is normal. The visualized osseous structures appear normal. Evaluation of the central canal is limited without contrast. There is multiple posterior disc bulges resulting in flattening of the thecal sac. There does not appear to be gross flattening of the cervical cord. There is moderate narrowing of multiple neuroforamen. There is degenerative pannus posterior to the dens which causes effacement of CSF anterior to the cortical medullary junction. Impression: No acute findings. Clinical correlation suggested. PQRS Compliance Statement: One or more of the following individualized dose reduction techniques were utilized for this examination: 1. Automated exposure control 2. Adjustment of the mA and/or kV according to patient size 3. Use of iterative reconstruction technique Electronically signed by: Rafael Fung III, MD (11/29/2018 10:47 PM) [id number]
[2018-11-29 23:10] LABS: BACTERIA,URINE MANY /HPF (0-FEW); BILIRUBIN,URINE NEG (NEG); CLARITY,URINE CLOUDY; COLOR,URINE YELLOW; GLUCOSE,URINE NEG (NEG); NITRITE,URINE POS (NEG); UROBILINOGEN,URINE 0.2 mg/dL (0.2 mg/dL); WBC,URINE >40 /HPF (0-4)
[2018-11-29] MEDS ORDERED: LEVO500T8 PO (23:25)
[2018-11-29] MEDS: levoFLOXacin 500 MG TABLET PO ONE (23:42)
[2018-11-29] MEDS: cloNIDine HCL 0.1 MG TABLET PO ONE (23:46)
[2018-11-30 00:17] VITALS: BP 185/79
== END 2018-11-30 00:23 | disposition home or self-care (01) ==
LOC: ER 21:22
DX: S00.03XA Contusion of scalp, initial encounter (principal); N39.0 Urinary tract infection, site not specified; R51 Headache; I48.91 Unspecified atrial fibrillation; Z79.01 Long term (current) use of anticoagulants; Z88.2 Allergy status to sulfonamides; Z88.6 Allergy status to analgesic agent; Z88.5 Allergy status to narcotic agent; Z88.1 Allergy status to other antibiotic agents; W22.01XA Walked into wall, initial encounter; Y93.89 Activity, other specified; Y92.89 Other specified places as the place of occurrence of the external cause; Y99.8 Other external cause status
CPT/HCPCS: 70450; 72125; 81001; 87086; 99285-25

== ENCOUNTER 2018-12-20 02:00 | Inpatient (IN) | payer OTHER ==
[~2018-12-20] VITALS: Ht 162.6 cm; Wt 66.7 kg
[2018-12-20] VITALS (8 sets, daily range): BP systolic 115–179; BP diastolic 67–76
[~2018-12-20 02:00] MED LIST changes: +LEVO500T8 PO
[2018-12-20 04:52] LABS: BASO % 0 % (0-3); EOS % 0 % (0-3); HEMATOCRIT 30.9 % (36.0-47.0); HEMOGLOBIN 10.2 g/dL (12.0-15.5); LYMPH # 0.4 x10^3/uL (1.0-4.8); LYMPH % 4 % (24-48); MEAN CORPUSCULAR HEMOGLOBIN 33 pg (25-35); MEAN CORPUSCULAR HGB CONC 33 g/dL (31-37); MEAN CORPUSCULAR VOLUME 100 fL (79-100); MONO # 0.8 x10^3/uL (0.0-1.1); MONO % 8 % (0-9); NEUT % 88 % (31-73); PLATELET COUNT 226 x10^3/uL (140-400); RED BLOOD COUNT 3.09 x10^6/uL (3.50-5.40); RED CELL DISTRIBUTION WIDTH 15.4 % (11.5-14.5); WHITE BLOOD COUNT 10.3 x10^3/uL (4.0-11.0)
[2018-12-20 04:55] LABS: BILIRUBIN,URINE NEG (NEG); CLARITY,URINE HAZY; COLOR,URINE YELLOW; GLUCOSE,URINE NEG (NEG); NITRITE,URINE POS (NEG); UROBILINOGEN,URINE 0.2 mg/dL (0.2 mg/dL)
[2018-12-20 04:56] LABS: BACTERIA,URINE MANY /HPF (0-FEW); SQUAMOUS EPITHELIAL CELL,UR OCC /LPF; WBC,URINE >40 /HPF (0-4)
[2018-12-20 05:05] LABS: ALBUMIN 2.9 g/dL (3.4-5.0); CALCIUM 8.8 mg/dL (8.5-10.1); TOTAL PROTEIN 6.8 g/dL (6.4-8.2)
[2018-12-20 05:06] LABS: CREATININE 1.5 mg/dL (0.6-1.0); DIRECT BILIRUBIN 0.5 mg/dL (0.0-0.2); GFR 33.1; POTASSIUM 4.2 mmol/L (3.5-5.1); TOTAL BILIRUBIN 1.1 mg/dL (0.2-1.0)
[2018-12-20] MEDS ORDERED: AMIO200T4 PO (06:02)
[2018-12-20] MEDS ORDERED: PRAV80TA2 PO (06:02)
[2018-12-20] MEDS ORDERED: CARV6.253 PO (06:02)
[2018-12-20] MEDS ORDERED: OMEP40CA45 PO (06:02)
[2018-12-20] MEDS: HYDROcodone/APAP 5/325MG 1 TAB TABLET PO PRN ×2 (08:20→13:48)
[2018-12-20] MEDS: PANTOPRAZOLE 40 MG TABLET. PO SCH (08:20)
[2018-12-20] MEDS: CARVEDILOL 6.25 MG TABLET PO SCH ×2 (08:20→17:40)
[2018-12-20] MEDS: AMIODARONE HCL 200 MG TABLET PO SCH ×2 (08:21→20:20)
[2018-12-20] MEDS: BRIMONIDINE 0.2% OPHTH SOLUTION 5ML BOTTLE. OU SCH ×2 (08:21→20:21)
[2018-12-20] MEDS: CHOLECALCIFEROL (VITAMIN D3) 1,000 UNIT TABLET PO SCH (08:21)
[2018-12-20] MEDS: DICLOFENAC SODIUM 1% TOPICAL GEL 100GM TUBE. TP SCH ×3 (08:22→20:17)
[2018-12-20] MEDS: IV NORMAL SALINE 1,000ML 1,000 ML IV SCH ×2 (08:22→20:17)
--- NOTE | 2018-12-20 09:03 | RAD ---
PORTABLE CHEST 1V INDICATION: Fall, weakness. COMPARISON STUDY: CT 12/12/2015. Radiograph 10/03/2015. FINDINGS: Life Support Devices: Left pectoral transvenous dual-chamber biventricular pacemaker. Lungs: Low lung volume. No consolidation. Indistinct pulmonary vasculature. Pleura: No pleural effusion or pneumothorax. Heart and Mediastinum: Cardiomegaly. Tortuous thoracic aorta. IMPRESSION: Mild interstitial edema. No confluent consolidation. Electronically signed by: Blue Liang MD (12/20/2018 9:00 AM) [id number]
[2018-12-20] MEDS ORDERED: FLU VAX QS 2019-20 (36MOS+)/PF 0.5 ML SYRINGE. VAX IM ONE (10:00)
[2018-12-20] MEDS: VITS A & D/LANOLIN TOPICAL OINTMENT 42GM TUBE. TP SCH ×3 (10:00→20:17)
--- NOTE | 2018-12-20 15:46 | EKG ---
[address] [address] Test Date: 2018-12-20 Test Time: 02:43:53 Pat Name: JONES RESENDEZ Department: Room: 113 A Gender: F Animal Care Provider: : 1935 Requested By: JEREMY KIRBY Order Number: [id number] Reading MD: Ethan Huber MD Measurements Intervals [place] Rate: 60 P: CT: QRS: -20 QRSD: 16 T: -28 QT: 548 QTc: 554 Interpretive Statements A-V PACED Electronically Signed On 01-03-2019 8:48:31 SET OFF PRESS OPERATOR by Ethan Huber MD
--- NOTE | 2018-12-20 16:37 | HP ---
ADMIT DATE: 12/20/2018 HISTORY OF PRESENT ILLNESS: The patient apparently was brought to the Emergency Room complaining of tailbone pain after having a fall in the bathroom. She states she just got weak and fell. She is on Eliquis. Denied any loss of consciousness, head injury. Denied any neck injury. Apparently, her Lasix was increased yesterday to 40 mg by her home lighting adviser, ____ at [facility]. She was extensively evaluated in the Emergency Room. Her lab work showed that she has marked hyponatremia with serum sodium of 126. Her beta natriuretic peptide was 26,259. Her prothrombin time, INR and aPTT were slightly elevated. Urinalysis was positive for nitrite, moderate amount of leukocyte esterase and more than 40 wbc's and too many bacteria and was admitted with fall as well as urinary tract infection. She did have abrasions on her back and her buttocks and was admitted for treatment with IV antibiotic and to continue with all her other medications. PAST MEDICAL HISTORY: Significant for hypertension, hyperlipidemia, congestive heart failure, likely chronic diastolic congestive heart failure as well as sick sinus syndrome. PAST SURGICAL HISTORY: Significant for permanent pacemaker placement, bilateral total hip arthroplasty, bilateral carpal tunnel release, trigger finger release, left elbow fracture, bilateral cataract extractions. ALLERGIES: She is allergic to SULFA DRUGS, SULFAMETHOXAZOLE, TRIMETHOPRIM, NITROFURANTOIN, METAXALONE, CODEINE and ACETAMINOPHEN. FAMILY HISTORY: She had two brothers who are . One of her sister of Alzheimer disease. Father at age of 77 because of CVA, mother at age of 77 because of colon cancer. SOCIAL HISTORY: She is , has one son. She has never smoked, does not drink alcohol. 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 REVIEW OF SYSTEMS: The patient had bilateral cataract extraction, but denied any glaucoma or macular degeneration. Denied any earache, tinnitus or sensorineural deafness. Denied any nosebleeds, stuffy nose or postnasal drip. Denied any sore throat, sore tongue, toothache, hoarseness of voice or difficulty swallowing. Denied any nausea, vomiting, diarrhea or constipation. Denied any hematemesis, melena or hematochezia. Denied any dysuria, frequency or hematuria. She denied any chest pain. She did complain of shortness of breath. Does have cough, but no phlegm. PHYSICAL EXAMINATION: GENERAL: On arrival to the Emergency Room, she looked somewhat pale, but no jaundice or cyanosis. No lymphadenopathy. No thyromegaly. No jugular venous distention. No lower limb edema. VITAL SIGNS: Her heart rate was 60, blood pressure was 179/76, temperature was 97.6, respiratory rate was 20 and oxygen saturation was 96% on 2 liters of oxygen. HEAD, EYES, EARS, NOSE AND THROAT: Showed normocephalic, atraumatic. NECK: Supple. HEART: Showed normal first and second heart sounds. No gallop or murmur. CHEST: Clear to auscultation. No crepitation or rhonchi. ABDOMEN: Distended, soft, nontender. No guarding or rigidity. No organomegaly. All hernial orifices intact. Bowel sounds normal. NEUROLOGIC: She was hard of hearing, but otherwise all her cranial nerves were intact. EXTREMITIES: She moves extremities without difficulty. She apparently ambulates with a walker and also sometimes with a cane. LABORATORY DATA: On admission showed a white cell count of 10,300, hemoglobin 10.2, hematocrit 30.9, MCV 100 and platelet count of 226,000. Her chemistry showed serum sodium of 126, potassium 4.2, chloride 93, bicarbonate 22, anion gap of 11, BUN 38, creatinine 1.5, estimated GFR was 33 mL per minute. Her glucose 137, calcium was 8.8. Total bilirubin, AST, ALT, alkaline phosphatase were normal. Her troponin was less than 0.017. Her beta-natriuretic peptide was 26,259. Total protein was 6.8, albumin was 2.9. Prothrombin time was 12.7, INR 1.2, aPTT was 42. Her urinalysis showed the urine was yellow, hazy with pH of 5.5, specific gravity of 1.010. The urine showed trace of protein, negative for glucose, negative for ketones. There was moderate amount of blood, positive for nitrite, moderate amount of leukocyte esterase with 6-10 rbc's, more than 40 wbc's and many bacteria. She did have chest x-ray, which showed life support device, left pectoral transvenous dual chamber, biventricular pacemaker, low volume lungs. No consolidation. Indistinct pulmonary vasculature. No pleural effusion or pneumothorax. Heart and mediastinum, cardiomegaly, tortuous thoracic aorta. She has mild interstitial edema. No confluent consolidation. ASSESSMENT: In summary, this is an 83-year-old female patient who came again with another fall with sustaining some bruises on her buttocks and her back. No head injury and no loss of consciousness. In the Emergency Room, she apparently was extensively imaged, although I cannot find the x-rays. She was found to have urinary tract infection. PLAN: My plan is to continue all her medication except perhaps hold her apixaban for today and as well as her Lasix as her sodium was low. We will check her orthostatics. We will get physical and occupational therapy. She is currently on apixaban 5 mg twice a day, amiodarone 200 mg twice a day, pravastatin 80 mg at bedtime, carvedilol 6.25 mg twice a day. She is on diclofenac sodium 1 gram topically 3 times a day, furosemide 40 mg once a day, brimonidine tartrate for Alphagan 1 drop to both eyes twice a day and omeprazole 40 mg once a day and cholecalciferol 2000 [employer] Unit once a day. We will start her on gentle rehydration given that has both hyponatremia and prerenal azotemia. I will repeat BMP this afternoon and if the sodium has normalized, we will discontinue IV fluid. JEREMY KIRBY MD DR: BRIAN/phoebe JOB#: [id number] / [id number]
[2018-12-20] MEDS: ACETAMINOPHEN 500 MG TABLET PO PRN (18:08)
[2018-12-20 18:58] LABS: CALCIUM 8.3 mg/dL (8.5-10.1); CREATININE 1.6 mg/dL (0.6-1.0); GFR 30.7; POTASSIUM 4.2 mmol/L (3.5-5.1)
[2018-12-20] MEDS: ATORVASTATIN CALCIUM 20 MG TABLET PO SCH (20:20)
[2018-12-20] MEDS: ASCORBIC ACID 500 MG TABLET PO SCH (20:20)
[2018-12-21] MEDS: ACETAMINOPHEN 500 MG TABLET PO PRN ×3 (04:43→23:59)
[2018-12-21 05:34] VITALS: BP 153/71
[2018-12-21 06:18] LABS: HEMATOCRIT 26.9 % (36.0-47.0); RED BLOOD COUNT 2.69 x10^6/uL (3.50-5.40); RED CELL DISTRIBUTION WIDTH 15.6 % (11.5-14.5); WHITE BLOOD COUNT 8.7 x10^3/uL (4.0-11.0)
[2018-12-21 06:27] LABS: ALBUMIN 2.5 g/dL (3.4-5.0); ALBUMIN/GLOBULIN RATIO 0.7 (1.0-1.7); CALCIUM 7.8 mg/dL (8.5-10.1); CREATININE 1.4 mg/dL (0.6-1.0); GFR 35.8; POTASSIUM 4.4 mmol/L (3.5-5.1); TOTAL BILIRUBIN 0.5 mg/dL (0.2-1.0)
[2018-12-21] MEDS: AMIODARONE HCL 200 MG TABLET PO SCH ×2 (07:56→19:44)
[2018-12-21] MEDS: CETIRIZINE HCL 10 MG TABLET PO SCH (07:56)
[2018-12-21] MEDS: CARVEDILOL 6.25 MG TABLET PO SCH ×2 (07:56→15:59)
[2018-12-21] MEDS: CHOLECALCIFEROL (VITAMIN D3) 1,000 UNIT TABLET PO SCH (07:56)
[2018-12-21] MEDS: ASCORBIC ACID 500 MG TABLET PO SCH ×2 (07:56→19:43)
[2018-12-21] MEDS: PANTOPRAZOLE 40 MG TABLET. PO SCH (07:56)
[2018-12-21] MEDS: DICLOFENAC SODIUM 1% TOPICAL GEL 100GM TUBE. TP SCH ×3 (07:57→19:45)
[2018-12-21] MEDS: MULTIVITAMIN with MINERAL TABLET. PO SCH (07:57)
[2018-12-21] MEDS: VITS A & D/LANOLIN TOPICAL OINTMENT 42GM TUBE. TP SCH ×3 (07:57→19:45)
[2018-12-21] MEDS: BRIMONIDINE 0.2% OPHTH SOLUTION 5ML BOTTLE. OU SCH ×2 (07:57→19:43)
--- NOTE | 2018-12-21 09:36 | RAD ---
AP and Lateral Views of the Chest 12/21/2018 8:51 AM Indication: Shortness of breath Comparison: Chest radiograph December 20, 2018 Findings: Multilead pacemaking device from left subclavian approach. No pneumothorax, or pleural effusion is seen. Heart size is mildly enlarged. Mild central vascular congestion appears to be present. No focal infiltrate is identified. No acute osseous changes are seen. IMPRESSION: Mild cardiomegaly and central vascular congestion. Electronically signed by: Miguel Nina MD (12/21/2018 9:32 AM) [id number]
[2018-12-21] MEDS ORDERED: FUROSEMIDE 40 MG/4 ML VIAL IVP ONE (11:15)
[2018-12-21 11:42] VITALS: BP 138/77
[2018-12-21 15:08] VITALS: BP 125/60
[2018-12-21 19:02] VITALS: BP 133/68
[2018-12-21] MEDS: ATORVASTATIN CALCIUM 20 MG TABLET PO SCH (19:43)
[2018-12-21] MEDS: APIXABAN 5 MG TABLET. PO SCH (19:43)
[2018-12-21] MEDS: LACTOBACILLUS RHAMNOSUS GG 1 CAPSULE. PO SCH (19:43)
--- NOTE | 2018-12-21 21:04 | PN ---
DATE: 12/21/2018 SUBJECTIVE: The patient is sitting in her chair comfortably in no apparent respiratory distress; however, she does complain of shortness of breath. She apparently has gained about 6 pounds. When she came, she was hyponatremic and therefore, I held her Lasix and start her on a gentle rehydration. However, her sodium has not really changed, has consistently been to 126. I did discontinue her IV fluids. We will institute fluid restriction and start her on IV Lasix 40 mg daily. PHYSICAL EXAMINATION: GENERAL: When I saw her this morning, she looked well and was pale, but no jaundice, cyanosis or thyromegaly. No jugular venous distention. No lower limb edema. VITAL SIGNS: Her heart rate was 61, blood pressure 153/71, temperature was 97.6, respiratory rate 22, and oxygen saturation was 97% on 1 liter of oxygen. HEAD, EYES, EARS, NOSE AND THROAT: Showed normocephalic, atraumatic. NECK: Supple. HEART: Showed normal first and second heart sounds. No gallop, rub or murmur. CHEST: Clear to auscultation. No crepitation or rhonchi. ABDOMEN: Distended, soft, nontender. NEUROLOGIC: She was awake, alert, responding appropriately. All cranial nerves intact. She moves extremities without difficulty. She ambulates with a walker. Her intake over the last 24 hours was 2870, no output was recorded. LABORATORY DATA: Her lab work this morning showed a white cell count 8700, hemoglobin 9, hematocrit 27, MCV 100, and platelet count 220,000. Serum sodium was 126, potassium 4.4, chloride 95, bicarbonate 24, anion gap of 7, BUN was 35, creatinine 1.4, estimated GFR was 36 mL per minute. Her glucose 113, calcium was 7.8. Total bilirubin, AST, ALT, alkaline phosphatase were normal. Total protein was 6, albumin was 2.5. Her prothrombin time, INR and APTT were all normal. Urinalysis was positive for nitrite and there was more than 40 wbc's and moderate amount of leukocyte esterase. Her urine was sent for culture and sensitivity. ASSESSMENT: 1. Fall without any injury. She has mild bruises on her back. 2. Hypertension. 3. Hyperlipidemia. 4. Congestive heart failure due to diastolic left ventricular dysfunction, sick sinus syndrome as well as atrial fibrillation. PLAN: To start her on a fluid restriction of about 1000 mL in 24 hour. I resumed her apixaban and we will start her on IV Lasix 40 mg IV once a day and daily starting tomorrow. JEREMY KIRBY MD DR: BRIAN/phoebe JOB#: [id number] / [id number]
[2018-12-21 23:57] VITALS: BP 153/68
[2018-12-22 05:20] VITALS: BP 160/76
[2018-12-22 08:19] LABS: CREATININE 1.4 mg/dL (0.6-1.0); GFR 35.8; POTASSIUM 4.3 mmol/L (3.5-5.1); URIC ACID 5.6 mg/dL (2.6-6.0)
[2018-12-22] MEDS: BRIMONIDINE 0.2% OPHTH SOLUTION 5ML BOTTLE. OU SCH ×2 (08:37→20:45)
[2018-12-22] MEDS: APIXABAN 5 MG TABLET. PO SCH ×2 (08:37→20:46)
[2018-12-22] MEDS: LACTOBACILLUS RHAMNOSUS GG 1 CAPSULE. PO SCH ×2 (08:37→20:46)
[2018-12-22] MEDS: PANTOPRAZOLE 40 MG TABLET. PO SCH (08:38)
[2018-12-22] MEDS: MULTIVITAMIN with MINERAL TABLET. PO SCH (08:38)
[2018-12-22] MEDS: AMIODARONE HCL 200 MG TABLET PO SCH ×3 (08:38→21:00)
[2018-12-22] MEDS: CHOLECALCIFEROL (VITAMIN D3) 1,000 UNIT TABLET PO SCH (08:38)
[2018-12-22] MEDS: ASCORBIC ACID 500 MG TABLET PO SCH ×2 (08:39→20:46)
[2018-12-22] MEDS: CETIRIZINE HCL 10 MG TABLET PO SCH (08:39)
[2018-12-22] MEDS: CARVEDILOL 6.25 MG TABLET PO SCH ×2 (08:40→16:56)
[2018-12-22] MEDS: FUROSEMIDE 40 MG/4 ML VIAL IVP SCH (08:41)
[2018-12-22] MEDS: VITS A & D/LANOLIN TOPICAL OINTMENT 42GM TUBE. TP SCH ×3 (08:41→20:46)
[2018-12-22] MEDS: DICLOFENAC SODIUM 1% TOPICAL GEL 100GM TUBE. TP SCH ×3 (08:42→20:46)
[2018-12-22 11:35] VITALS: BP 125/62
[2018-12-22] MEDS: HYDROcodone/APAP 5/325MG 1 TAB TABLET PO PRN ×2 (11:36→21:46)
[2018-12-22 15:39] VITALS: BP 123/68
[2018-12-22] MEDS: ACETAMINOPHEN 500 MG TABLET PO PRN (16:56)
--- NOTE | 2018-12-22 18:53 | PN ---
DATE: 12/22/2018 SUBJECTIVE: The patient is sitting comfortably in her chair, in no apparent distress. She is feeling less short of breath today; however, she is complaining more of pain in her back and her left hip joint. She has marked bruises on the inner aspect of her thigh extending all the way to the left knee posteriorly. PHYSICAL EXAMINATION: GENERAL: When I examined her, she looked somewhat pale, but no jaundice, cyanosis or thyromegaly. No jugular venous distention. No limb edema. VITAL SIGNS: Her heart rate was 61, blood pressure was 125/62, temperature was 97.4, respiratory rate 20, and oxygen saturation was 94% on room air. HEAD, EYES, EARS, NOSE AND THROAT: Showed normocephalic, atraumatic. NECK: Supple. HEART: Showed normal first and second heart sounds. No gallop or murmur. CHEST: Shows central trachea, equal bilateral expansion, air entry, vesicular sounds, very few bilateral basal crepitations. I could not appreciate any rhonchi. ABDOMEN: Distended, soft, nontender. NEUROLOGIC: She was awake, alert, responding appropriately. All cranial nerves are intact. She moves extremities without difficulty, although she is complaining of more pain in her lower back as well as her left hip joint. SKIN: Showed she had extensive bruises on the medial aspect of left thigh extending all the way to below the left knee posteriorly. Her intake was __. No output was recorded. LABORATORY DATA: Her lab work this morning showed a serum sodium of 127, potassium 4.3, chloride 96, bicarbonate 24, anion gap of 7, BUN 32, creatinine 1.4, estimated GFR was 56 mL per minute. Her glucose was 81, calcium was 5.6, albumin was 8. Total bilirubin, AST, ALT, alkaline phosphatase were normal. Total protein was 6, albumin was 2.5. ASSESSMENT: 1. Fall with back pain and left hip pain, which I have arranged for a total body bone scan, multiple bruises on the medial aspect of left thigh extending all the way to the left knee posteriorly. 2. Congestive heart failure due to diastolic left ventricular dysfunction seems to be much better. 3. Atrial fibrillation, rate controlled, well anticoagulated on apixaban. 4. Sick sinus syndrome, status post permanent pacemaker, hyperlipidemia, hypertension. PLAN: My plan is to continue with IV Lasix on a daily basis. Continue with IV ceftriaxone for urinary tract infection and arrange for the whole body bone scan. She is having severe pain in her lower back on the sacral area also her left hip joint. JEREMY KIRBY MD DR: BRIAN/phoebe JOB#: [id number] / [id number]
[2018-12-22 19:28] VITALS: BP 124/67
[2018-12-22] MEDS: ATORVASTATIN CALCIUM 20 MG TABLET PO SCH (20:46)
[2018-12-22 23:14] VITALS: BP 123/63
[2018-12-23] MEDS: ACETAMINOPHEN 500 MG TABLET PO PRN ×2 (01:40→20:48)
[2018-12-23] MEDS: HYDROcodone/APAP 5/325MG 1 TAB TABLET PO PRN ×4 (05:09→23:41)
[2018-12-23 05:41] VITALS: BP 166/81
[2018-12-23 06:44] LABS: HEMATOCRIT 26.2 % (36.0-47.0); HEMOGLOBIN 8.8 g/dL (12.0-15.5); RED BLOOD COUNT 2.62 x10^6/uL (3.50-5.40); RED CELL DISTRIBUTION WIDTH 15.7 % (11.5-14.5); WHITE BLOOD COUNT 7.5 x10^3/uL (4.0-11.0)
[2018-12-23 06:56] LABS: ALBUMIN 2.5 g/dL (3.4-5.0); ALBUMIN/GLOBULIN RATIO 0.7 (1.0-1.7); CALCIUM 7.9 mg/dL (8.5-10.1); CREATININE 1.5 mg/dL (0.6-1.0); GFR 33.1; POTASSIUM 4.4 mmol/L (3.5-5.1); TOTAL BILIRUBIN 0.5 mg/dL (0.2-1.0)
[2018-12-23] MEDS: MULTIVITAMIN with MINERAL TABLET. PO SCH (08:36)
[2018-12-23] MEDS: CARVEDILOL 6.25 MG TABLET PO SCH ×2 (08:36→16:48)
[2018-12-23] MEDS: APIXABAN 5 MG TABLET. PO SCH ×2 (08:36→20:39)
[2018-12-23] MEDS: ASCORBIC ACID 500 MG TABLET PO SCH ×2 (08:36→20:39)
[2018-12-23] MEDS: FUROSEMIDE 40 MG/4 ML VIAL IVP SCH (08:36)
[2018-12-23] MEDS: CETIRIZINE HCL 10 MG TABLET PO SCH (08:36)
[2018-12-23] MEDS: BRIMONIDINE 0.2% OPHTH SOLUTION 5ML BOTTLE. OU SCH ×2 (08:37→20:41)
[2018-12-23] MEDS: VITS A & D/LANOLIN TOPICAL OINTMENT 42GM TUBE. TP SCH ×3 (08:37→20:39)
[2018-12-23] MEDS: PANTOPRAZOLE 40 MG TABLET. PO SCH (08:37)
[2018-12-23] MEDS: LACTOBACILLUS RHAMNOSUS GG 1 CAPSULE. PO SCH ×2 (08:37→20:38)
[2018-12-23] MEDS: AMIODARONE HCL 200 MG TABLET PO SCH ×2 (08:37→20:38)
[2018-12-23] MEDS: CHOLECALCIFEROL (VITAMIN D3) 1,000 UNIT TABLET PO SCH (08:37)
[2018-12-23] MEDS: DICLOFENAC SODIUM 1% TOPICAL GEL 100GM TUBE. TP SCH ×3 (08:37→20:39)
--- NOTE | 2018-12-23 09:06 | RAD ---
EXAM: BONE SCINTIGRAPHY. HISTORY: Back and left hip pain after fall. TECHNIQUE: Following the intravenous injection of 22 mCi of Tc-99m labeled methylene diphosphonate (MDP), delayed images of the whole body were performed in anterior and posterior projections. COMPARISON: 05/18/2018. FINDINGS: Bilateral vertically oriented regions of intense uptake within the sacral ala are consistent with insufficiency lesions. Uptake along the lateral elements of the lumbar spinal the left greater than right most likely reflect facet osteoarthritis on comparison with prior CT. No spinal fracture is identified. Mildly increased uptake along the left medial acetabulum may be reflect some loosening in the setting of asymmetric liner wear on comparison with prior studies. There is intense uptake about the left glenohumeral joint. IMPRESSION: 1. Findings consistent with bilateral sacral insufficiency fractures. 2. Uptake about the left acetabulum may reflect a hardware complication in the setting of arthroplasty. Plain radiographs are recommended. 3. Intense uptake about the left glenohumeral joint may be degenerative versus avascular necrosis. Plain radiographs could further evaluate. Electronically signed by: Chapin Davis MD (12/23/2018 9:03 AM) [facility]
[2018-12-23 10:32] VITALS: BP 112/61
[2018-12-23 14:19] VITALS: BP 115/64
[2018-12-23 19:20] VITALS: BP 171/74
--- NOTE | 2018-12-23 19:27 | RAD ---
EXAM: LEFT SHOULDER 3 VIEWS. HISTORY: Left shoulder pain, fall, abnormal uptake on bone scintigraphy. COMPARISON: The 12/22/2018. FINDINGS: No acute fractures are identified. Remodeling of the humeral articular surface with extensive subchondral sclerosis is consistent with moderate to severe osteoarthritis. Irregularity of the humeral articular surface may reflect a chronic component of avascular necrosis or an old fracture. Acromioclavicular osteoarthritis is moderate. Inferiorly directed clavicular spurs measure 5 mm. A 3-lead pacemaker is partially visualized. IMPRESSION: 1. 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 2. Moderate acromioclavicular osteoarthritis with a prominent inferiorly directed spur. Correlate for impingement. Electronically signed by: Chapin Davis MD (12/23/2018 7:24 PM) [facility]
--- NOTE | 2018-12-23 19:29 | RAD ---
EXAM: LEFT HIP, 2 VIEWS. HISTORY: Abnormal uptake on bone scintigraphy. COMPARISON: 12/22/2018. FINDINGS: A left total hip arthroplasty is in place. There is asymmetric liner wear superiorly. There is a nondisplaced fracture along the base of the superior pubic ramus. Another nondisplaced fracture suspected along inferior pubic ramus. These do not definitively extend to the prosthesis by radiographs. No clear osteolysis is seen. IMPRESSION: 1. Fractures of the left superior and inferior pubic rami. 2. Asymmetric liner wear without clear osteolysis. CT is more sensitive if there is persistent concern. Orthopedic follow-up is recommended. Electronically signed by: Chapin Davis MD (12/23/2018 7:26 PM) [facility]
[2018-12-23] MEDS: ATORVASTATIN CALCIUM 20 MG TABLET PO SCH (20:38)
--- NOTE | 2018-12-24 00:23 | PN ---
DATE: SUBJECTIVE: The patient is sitting comfortably in her chair, in no apparent respiratory distress. On questioning her, she stated she is doing much better, has no more shortness of breath, continued to have low back pain and left hip pain. Her bone scan showed that she has finding consistent with bilateral sacral insufficiency fractures, uptake about the left acetabulum reflect the hardware complication in the setting of arthroplasty. Plain radiographs are recommended. She has intense uptake about the left glenohumeral joint may be degenerative versus avascular necrosis, plain radiograph could further evaluate. PHYSICAL EXAMINATION: GENERAL: When I examined her this afternoon, she looked pale, but no jaundice, cyanosis or thyromegaly. No jugular venous distention. No limb edema. VITAL SIGNS: Her heart rate was 62, blood pressure 115/64, temperature was 98, respiratory rate was 16, and oxygen saturation was 95% on room air. HEAD, EYES, EARS, NOSE AND THROAT: Normocephalic, atraumatic. NECK: Supple. HEART: Showed normal first and second heart sounds. No gallop or murmur. CHEST: Clear to auscultation. No crepitation or rhonchi. ABDOMEN: Distended, soft, nontender. No guarding or rigidity. No organomegaly. All hernial orifice intact. Bowel sounds normal. NEUROLOGIC: She was awake, alert, responding appropriately. All cranial nerves intact. She moves extremities without difficulty. She ambulates with a walker. Her intake was 763, output 250. LABORATORY DATA: Her lab work this morning showed a white cell count 7500, hemoglobin 8.8, hematocrit 26, MCV 100 and platelet count 225,000. Her chemistry showed a serum sodium of 129, potassium 4.4, chloride 95, bicarbonate 26, anion gap of 8, BUN 34, creatinine 1.5, estimated GFR was 33 mL per minute. Her glucose was 79, calcium was 7.9. Total bilirubin, AST, ALT were normal. Alkaline phosphatase slightly elevated. Total protein was 6, albumin was 2.5. Her TSH was 3.394 and morning cortisol was 14.5. Her prothrombin time was 12.7, INR 1.2, APTT was 42. Urinalysis showed more than 40 wbc's. Her urine culture has grown more than 100,000 colony forming units per mL of gram-negative rods. The identification and sensitivity is still pending at the time of this dictation. ASSESSMENT: 1. Fall with back pain and left hip pain. Bone scan showed that she has bilateral sacral insufficiency fractures. She has also increased uptake at the left acetabulum and left glenohumeral joint. 2. Congestive heart failure due to acute on chronic diastolic congestive heart failure, much improved atrial fibrillation, rate controlled, well anticoagulated. 3. Sick sinus syndrome, status post permanent pacemaker. 4. Hyperlipidemia. 5. Hypertension. 6. Hyponatremia, improving. PLAN: I will discontinue her IV Lasix, switch to oral Lasix. I will continue with IV ceftriaxone for now. I will consult the orthopedic surgeon as well as the interventional radiologist and decide the further management accordingly. JEREMY KIRBY MD DR: BRIAN/phoebe JOB#: [id number] / [id number]
[2018-12-24] MEDS: HYDROcodone/APAP 5/325MG 1 TAB TABLET PO PRN ×4 (04:11→20:04)
[2018-12-24 05:10] VITALS: BP 135/60
[2018-12-24] MEDS: LACTOBACILLUS RHAMNOSUS GG 1 CAPSULE. PO SCH ×2 (07:47→20:03)
[2018-12-24] MEDS: ASCORBIC ACID 500 MG TABLET PO SCH ×2 (07:47→20:04)
[2018-12-24] MEDS: FUROSEMIDE 40 MG TABLET PO SCH (07:47)
[2018-12-24] MEDS: CHOLECALCIFEROL (VITAMIN D3) 1,000 UNIT TABLET PO SCH (07:47)
[2018-12-24] MEDS: CARVEDILOL 6.25 MG TABLET PO SCH ×2 (07:48→17:14)
[2018-12-24] MEDS: MULTIVITAMIN with MINERAL TABLET. PO SCH (07:48)
[2018-12-24] MEDS: CETIRIZINE HCL 10 MG TABLET PO SCH (07:48)
[2018-12-24] MEDS: PANTOPRAZOLE 40 MG TABLET. PO SCH (07:48)
[2018-12-24] MEDS: APIXABAN 5 MG TABLET. PO SCH ×2 (07:48→20:04)
[2018-12-24] MEDS: AMIODARONE HCL 200 MG TABLET PO SCH ×2 (07:48→20:03)
[2018-12-24] MEDS: DICLOFENAC SODIUM 1% TOPICAL GEL 100GM TUBE. TP SCH ×3 (07:49→20:05)
[2018-12-24] MEDS: VITS A & D/LANOLIN TOPICAL OINTMENT 42GM TUBE. TP SCH ×3 (07:49→20:05)
[2018-12-24] MEDS: BRIMONIDINE 0.2% OPHTH SOLUTION 5ML BOTTLE. OU SCH ×2 (07:50→20:03)
[2018-12-24 08:51] VITALS: BP 120/55
[2018-12-24 15:20] VITALS: BP 128/67
[2018-12-24 20:03] VITALS: BP 115/48
[2018-12-24] MEDS: ATORVASTATIN CALCIUM 20 MG TABLET PO SCH (20:04)
[2018-12-24] MEDS: ACETAMINOPHEN 500 MG TABLET PO PRN (21:39)
--- NOTE | 2018-12-24 22:35 | PN ---
DATE: 12/24/2018 SUBJECTIVE: The patient is resting slightly propped up in bed, no apparent distress. Did complain that she is unsteady and wobbly though the nursing staff stated that she has no evidence of postural hypertension. Continue to complain of low back pain, left hip pain, has had bone scan showed that she has bilateral sacral insufficiency fracture. She has also left acetabulum increased uptake about the left acetabulum reflect the hardware complication in the setting of arthroplasty and as she has intense uptake about the left glenohumeral joint may be degenerative versus avascular necrosis. We did do a plain x-ray of the left shoulder, which showed that she has moderate to severe glenohumeral osteoarthritis or possibly superimposed chronic avascular necrosis or a remote fracture deformity. She has moderate acromioclavicular osteoarthritis of the prominent inferiorly directed spur. The plain x-ray of the left hip showed that there is a fracture of the left superior and inferior pubic rami, stye metric liner wear without clear osteolysis. CT is more sensitive if there is resistant, consider an orthopedic followup is recommended. There is a left total hip arthroplasty in place. There is a stye metric liner wear superiorly. There is a nondisplaced fracture along the base of the superior pubic ramus, another nondisplaced fracture suspected along the inferior pubic ramus. These do not definitively extend to the prostheses by radiographs. PHYSICAL EXAMINATION: GENERAL: When I examined her this morning, she looked pale, but no jaundice, cyanosis or thyromegaly. No jugular venous distention. No limb edema. VITAL SIGNS: Her heart rate was 60, blood pressure was 135/60, temperature was 97.7, respiratory rate 22, and oxygen saturation was 93% on room air. HEAD, EYES, EARS, NOSE AND THROAT: Showed normocephalic, atraumatic. NECK: Supple. HEART: Showed normal first and second heart sounds. No gallop or murmur. CHEST: Clear to auscultation. No crepitation or rhonchi. ABDOMEN: Distended, soft, nontender. No guarding or rigidity. No organomegaly. All hernial orifice intact. Bowel sounds normal. NEUROLOGIC: She was awake, alert, responding appropriately. All cranial nerves intact. She moves extremities without difficulty. She ambulates with a walker. Her intake was 918, no output was recorded as of this morning. LABORATORY DATA: She has no lab work done this morning. Her serum sodium was 129, potassium 4.4, chloride 95, bicarbonate 26, anion gap of 8, BUN 34, creatinine 1.5, estimated GFR was 33 mL per minute. Her glucose was 79, calcium was 7.9. Total bilirubin, AST, ALT, alkaline phosphatase were normal. Her white cell count was 7500, hemoglobin 8.8, hematocrit 26, MCV 100, and platelet count 225,000. ASSESSMENT: 1. Fall with back and left hip pain. Bone scan showed that she has bilateral sacral insufficiency fracture also increased uptake at the left acetabulum and left glenohumeral joint. She has also left superior inferior pubic rami nondisplaced fracture. 2. Congestive heart failure due to acute on chronic diastolic congestive heart failure, much improved. 3. Atrial fibrillation, rate controlled, well anticoagulated. 4. Sick sinus syndrome, status post permanent pacemaker. 5. Hyperlipidemia. 6. Hypertension. 7. Hyponatremia, improving. PLAN: To continue with oral Lasix as recommended by her primary physical therapy assistant instructor. Continue with IV ceftriaxone. She did grow more than 100,000 colony forming units per mL of Klebsiella oxytoca. I will consult tomorrow with the orthopedic surgeon as well as radiologist to see whether she is a candidate for sacroplasty or that she needs any further workup regarding her left hip joint. JEREMY KIRBY MD DR: BRIAN/phoebe JOB#: [id number] / [id number]
[2018-12-24 23:26] VITALS: BP 115/52
[2018-12-25] MEDS: HYDROcodone/APAP 5/325MG 1 TAB TABLET PO PRN ×5 (00:59→21:22)
[2018-12-25] MEDS: DICLOFENAC SODIUM 1% TOPICAL GEL 100GM TUBE. TP SCH ×3 (05:05→21:22)
[2018-12-25 05:35] VITALS: BP 123/65
[2018-12-25 06:45] LABS: HEMATOCRIT 25.1 % (36.0-47.0); HEMOGLOBIN 8.3 g/dL (12.0-15.5); RED BLOOD COUNT 2.5 x10^6/uL (3.50-5.40); RED CELL DISTRIBUTION WIDTH 15.8 % (11.5-14.5); WHITE BLOOD COUNT 8.4 x10^3/uL (4.0-11.0)
[2018-12-25 07:02] LABS: ALBUMIN 2.4 g/dL (3.4-5.0); ALBUMIN/GLOBULIN RATIO 0.7 (1.0-1.7); CREATININE 1.5 mg/dL (0.6-1.0); GFR 33.1; POTASSIUM 4.3 mmol/L (3.5-5.1); TOTAL BILIRUBIN 0.3 mg/dL (0.2-1.0); TOTAL PROTEIN 5.9 g/dL (6.4-8.2)
[2018-12-25] MEDS: ASCORBIC ACID 500 MG TABLET PO SCH ×2 (08:02→21:22)
[2018-12-25] MEDS: APIXABAN 5 MG TABLET. PO SCH (08:02)
[2018-12-25] MEDS: CARVEDILOL 6.25 MG TABLET PO SCH ×2 (08:02→17:00)
[2018-12-25] MEDS: CETIRIZINE HCL 10 MG TABLET PO SCH (08:02)
[2018-12-25] MEDS: PANTOPRAZOLE 40 MG TABLET. PO SCH (08:02)
[2018-12-25] MEDS: AMIODARONE HCL 200 MG TABLET PO SCH ×2 (08:02→21:22)
[2018-12-25] MEDS: FUROSEMIDE 40 MG TABLET PO SCH (08:03)
[2018-12-25] MEDS: MULTIVITAMIN with MINERAL TABLET. PO SCH (08:03)
[2018-12-25] MEDS: CHOLECALCIFEROL (VITAMIN D3) 1,000 UNIT TABLET PO SCH (08:03)
[2018-12-25] MEDS: LACTOBACILLUS RHAMNOSUS GG 1 CAPSULE. PO SCH ×2 (08:03→21:21)
[2018-12-25] MEDS: BRIMONIDINE 0.2% OPHTH SOLUTION 5ML BOTTLE. OU SCH ×2 (08:03→21:21)
[2018-12-25] MEDS: VITS A & D/LANOLIN TOPICAL OINTMENT 42GM TUBE. TP SCH ×3 (08:05→21:22)
[2018-12-25 14:38] VITALS: BP 110/56
[2018-12-25] MEDS ORDERED: LORazepam 0.5 MG TABLET PO PRN (17:15)
--- NOTE | 2018-12-25 17:33 | RAD ---
CT study of the pelvis without contrast Clinical indications: Back pain and left hip pain after a fall. Abnormal left hip radiographic study dated December 23, 2018 and abnormal bone scan study dated December 22, 2018. COMPARISON: The 2 aforementioned studies. TECHNIQUE: Noncontrast helical CT scanning of the pelvis was performed. Multiplanar 2-D reconstructions were generated. PQRS compliance Statement One or more of the following individualized dose reduction techniques were utilized for this study: 1. Automated exposure control 2. Adjustment of the mA and/or kV according to patient size 3. Use of iterative reconstruction technique FINDINGS: Bilateral hip arthroplasties are evident which are well aligned. No lucency is seen around either prosthesis to indicate loosening and/or infection. There is a nondisplaced fracture of the left inferior pubic ramus at the junction with the left pubic bone. There is a nondisplaced fracture of the lateral aspect of the left superior pubic ramus at the junction with the acetabulum. The right obturator ring is intact. No diastases of the symphysis pubis or either SI joint is seen. There is a nondisplaced fracture in the sagittal plane involving the upper right sacrum. There is a nondisplaced sagittal fracture of the upper left sacrum as well. No displacement of the distal sacrum or coccyx is seen. No lytic process is evident. There is streaking artifact throughout the lower pelvis related to bilateral hip prostheses. This does obscure the lower pelvis including the urinary bladder. Air-fluid level is seen within the urinary bladder which most likely is secondary to recent catheterization or the short length of the female urethra. Colovesical fistula is considered less likely given the lack of obvious wall thickening of the urinary bladder in this area. Sigmoid diverticulosis is seen without diverticulitis. No soft tissue mass or pelvic lymphadenopathy is evident. IMPRESSION: Fractures of the left obturator ring. Insufficiency fractures of both sides of the sacrum. Electronically signed by: Stoney Marquez MD (12/25/2018 5:30 PM) [id number]
--- NOTE | 2018-12-25 20:29 | PN ---
DATE: 12/25/2018 SUBJECTIVE: The patient is sitting comfortably in her chair, in no apparent distress. She continued to complain of left shoulder pain, left hip pain and back pain. Her bone scan showed that she has finding consistent with bilateral sacral insufficiency fractures, uptake about her left acetabulum reflective hardware complication in the setting of arthroplasty and intense uptake about the left glenohumeral joint may be degenerative versus avascular necrosis. I did leave a message with Dr. Jackson regarding sacroplasty and he ordered a CT scan of the pelvis, the results of which is still pending at the time of this dictation. PHYSICAL EXAMINATION: GENERAL: When I examined her this morning, she looked pale, but no jaundice, cyanosis or thyromegaly. No jugular venous distention or limb edema. VITAL SIGNS: Her heart rate was 61, blood pressure was 123/65, temperature was 97.4, respiratory rate was 18, and oxygen saturation was 92%. HEAD, EYES, EARS, NOSE AND THROAT: Showed normocephalic, atraumatic. NECK: Supple. HEART: Showed normal first and second heart sounds with no gallop, rub or murmur. CHEST: Clear to auscultation. No crepitation or rhonchi. ABDOMEN: Distended, soft, nontender. NEUROLOGIC: She was awake, alert, responding appropriately. All cranial nerves intact. She moves extremities without difficulty. She ambulates with a walker. Her intake over the last 24 hours was 600, no output was recorded. LABORATORY DATA: Her lab work this morning showed a white cell count of 8400, hemoglobin 8.3, hematocrit 25, MCV 100, and platelet count 215,000. Her chemistry showed serum sodium of 132, potassium 4.3, chloride 99, bicarbonate 26, anion gap of 7, BUN 42, creatinine 1.5, estimated GFR was 33 mL per minute. Her glucose was 84, calcium was 8. Total bilirubin, AST, ALT were normal. Alkaline phosphatase slightly elevated. Total protein was 5.9, albumin was 2.4. Her TSH and morning cortisol are within normal range. ASSESSMENT: 1. Fall with back and left hip pain. 2. Bone scan showed that she has bilateral sacral insufficiency fracture, increased uptake at around left acetabulum and left glenohumeral joint, also has left superior and inferior pubic rami, nondisplaced fracture. 3. Congestive heart failure due to acute on chronic diastolic congestive heart failure, much improved. 4. Atrial fibrillation, rate controlled, well anticoagulated. 5. Sick sinus syndrome, status post permanent pacemaker placement. 6. Hyperlipidemia. 7. Hypertension. 8. Hyponatremia is improving. PLAN: To continue with oral Lasix. Continue with fluid restriction. Continue with IV antibiotic. I will switch the patient to oral antibiotic and await evaluation of the sacral left fracture by Dr. Jackson. If he thinks that she is a candidate for that, I will transfer her to [facility]. JEREMY KIRBY MD DR: BRIAN/phoebe JOB#: [id number] / [id number]
[2018-12-25 21:11] VITALS: BP 109/51
[2018-12-25] MEDS: ATORVASTATIN CALCIUM 20 MG TABLET PO SCH (21:22)
[2018-12-25 23:18] VITALS: BP 110/62
[2018-12-26] MEDS: ACETAMINOPHEN 500 MG TABLET PO PRN (02:13)
[2018-12-26] MEDS: HYDROcodone/APAP 5/325MG 1 TAB TABLET PO PRN ×2 (05:25→10:30)
[2018-12-26 06:16] VITALS: BP 157/65
[2018-12-26] MEDS: LACTOBACILLUS RHAMNOSUS GG 1 CAPSULE. PO SCH (08:17)
[2018-12-26] MEDS: ASCORBIC ACID 500 MG TABLET PO SCH (08:17)
[2018-12-26] MEDS: MULTIVITAMIN with MINERAL TABLET. PO SCH (08:17)
[2018-12-26] MEDS: AMIODARONE HCL 200 MG TABLET PO SCH (08:18)
[2018-12-26] MEDS: PANTOPRAZOLE 40 MG TABLET. PO SCH (08:18)
[2018-12-26 08:20] VITALS: BP 157/65
[2018-12-26] MEDS: CARVEDILOL 6.25 MG TABLET PO SCH (08:20)
[2018-12-26] MEDS: BRIMONIDINE 0.2% OPHTH SOLUTION 5ML BOTTLE. OU SCH (08:21)
[2018-12-26] MEDS: VITS A & D/LANOLIN TOPICAL OINTMENT 42GM TUBE. TP SCH (08:21)
[2018-12-26] MEDS: FUROSEMIDE 40 MG TABLET PO SCH (08:21)
[2018-12-26] MEDS: CHOLECALCIFEROL (VITAMIN D3) 1,000 UNIT TABLET PO SCH (08:21)
[2018-12-26] MEDS: CETIRIZINE HCL 10 MG TABLET PO SCH (08:21)
[2018-12-26] MEDS: DICLOFENAC SODIUM 1% TOPICAL GEL 100GM TUBE. TP SCH (08:22)
--- NOTE | 2019-01-04 10:44 | DS ---
DATE OF DISCHARGE: 12/26/2018 HOSPITAL COURSE: The patient is an 83-year-old female patient who was admitted originally to the Emergency Room to [facility] with a complaint of pain in her tailbone after having fallen in the bathroom. She stated that she was very weak and fell. She is on Eliquis. Denied any loss of consciousness, head injury. Denied any neck injury. Apparently, her Lasix was increased recently by her general office worker at [facility]. She was extensively evaluated in the Emergency Room. Her lab work showed that she has marked hyponatremia with serum sodium of 126 mEq per liter. However, her beta natriuretic peptide was extremely high at 26,259. Her prothrombin time, INR and aPTT were slightly elevated. Urinalysis was positive for nitrite and leukocyte esterase and more than 40 wbc's, the urine was sent for culture and sensitivity, and was started on IV antibiotic in the form of Rocephin. I did start her on a trial of normal saline, but she became more short of breath, therefore, we discontinued the IV fluid and started on fluid restriction. I did check her TSH and morning cortisol, both were within normal range. She continued to complain of pain in her left hip joint and her low back. I ordered total body bone scan, which showed that finding consistent with bilateral sacral insufficiency fractures. She has also increased uptake around the left acetabulum that may reflect the hardware complication in the setting of arthroplasty and also intense uptake about the left glenohumeral joint that may be degenerative or secondary to avascular necrosis. I did speak with Dr. Jackson, the interventional radiologist to see whether she is a candidate for sacroplasty. She did order a CT scan of the pelvis, which basically showed that the patient has fracture of the left obturator ring insufficiency fractures, both sides of the sacrum and that she was on Eliquis. We held that and was transferred to [facility] with a plan to arrange for a sacroplasty. I did speak with Dr. Gardiner about the finding on her left hip and left shoulder and did not recommend any surgical intervention. PHYSICAL EXAMINATION: GENERAL: On the day of discharge, the patient looked well and was clearly in no apparent respiratory distress, slightly pale, but no jaundice, cyanosis or thyromegaly. No jugular venous distention. No limb edema. VITAL SIGNS: Her heart rate was 60, blood pressure was 157/65, temperature was 97.6, respiratory rate 20, and oxygen saturation was 96% on 1 liter of oxygen. The rest of clinical exam is stable. LABORATORY DATA: Her lab work showed that her hemoglobin and hematocrit have been trending down from 10 and 30 to 8 and 25. Her chemistry showed her sodium has dramatically risen from 126-132, sodium 4.3, chloride 99, bicarbonate 26, anion gap of 7, BUN 42, creatinine 1.5, estimated GFR was 33 mL per minute. Her glucose was 84, calcium was 8. Total bilirubin, AST, ALT were normal. Alkaline phosphatase slightly elevated. Total protein was 5.9, albumin was 2.4. Her prothrombin time, INR and aPTT were slightly elevated. Urinalysis showed that was positive for nitrite and leukocyte esterase, more than 40 wbc's per high power field. In fact, her urine culture has grown more than 100,000 colony forming units per mL of gram-negative rods identified as Klebsiella oxytoca sensitive to almost all antibiotics. DISCHARGE MEDICATIONS: The patient was transferred to [facility] to continue on amiodarone 200 mg twice a day, brimonidine tartrate for Alphagan one drop to both eyes twice a day, carvedilol 6.25 mg twice a day, ergocalciferol, vitamin D3 2000 international units once a day, diclofenac sodium topically 2 times a day, furosemide 40 mg daily, omeprazole 40 mg once a day, pravastatin sodium 80 mg once a day. We did stop the Eliquis in preparation for the sacroplasty, was continued on her IV ceftriaxone for the treatment of her urinary tract infection. FINAL DISCHARGE DIAGNOSES: Bilateral sacral insufficiency fracture. She has also a left acetabular fracture and left shoulder avascular necrosis. Other medical problems include hypertension, hyperlipidemia, congestive heart failure, likely acute on chronic diastolic congestive heart failure as well as sick sinus syndrome. JEREMY KIRBY MD DR: BRIAN/phoebe JOB#: [id number] / [id number]
== END 2018-12-26 10:36 | disposition short-term general hospital (02) | DRG 542 ==
LOC: ER 02:00 → 1 SOUTH 04:00
PROVIDERS: ADMIT Internal Medicine; ATTEND Internal Medicine
DX: M80.08XA Age-related osteoporosis with current pathological fracture, vertebra(e), initial encounter for fracture (principal); I50.33 Acute on chronic diastolic (congestive) heart failure; N39.0 Urinary tract infection, site not specified; E87.1 Hypo-osmolality and hyponatremia; M87.9 Osteonecrosis, unspecified; M84.48XA Pathological fracture, other site, initial encounter for fracture; M84.454A Pathological fracture, pelvis, initial encounter for fracture; S30.0XXA Contusion of lower back and pelvis, initial encounter; E78.5 Hyperlipidemia, unspecified; I49.5 Sick sinus syndrome; M19.012 Primary osteoarthritis, left shoulder; I11.0 Hypertensive heart disease with heart failure; Z96.643 Presence of artificial hip joint, bilateral; W18.39XA Other fall on same level, initial encounter; I48.91 Unspecified atrial fibrillation; Y93.89 Activity, other specified; Y92.89 Other specified places as the place of occurrence of the external cause; Z79.01 Long term (current) use of anticoagulants; Z95.0 Presence of cardiac pacemaker; Z98.42 Cataract extraction status, left eye; Z98.41 Cataract extraction status, right eye; Z88.5 Allergy status to narcotic agent; Z88.2 Allergy status to sulfonamides; Z88.8 Allergy status to other drugs, medicaments and biological substances; Z82.0 Family history of epilepsy and other diseases of the nervous system; Z82.3 Family history of stroke; Z80.0 Family history of malignant neoplasm of digestive organs
CPT/HCPCS: 36415; 71045; 71046; 72192; 73030; 73502; 78306; 80048; 80053; 80076; 81001; 82533; 83880; 84443; 84484; 84550; 85025; 85027; 85610; 85730; 87086; 87186; 90471; 90686; 93005; A9503; J0696; J1940; 97110; 97116; 97535; 99285-25; J7030

== ENCOUNTER 2019-01-30 13:06 | Emergency (ER) | payer OTHER ==
[~2019-01-30] VITALS: Ht 160 cm; Wt 74.4 kg
[~2019-01-30 13:06] MED LIST changes: +AMIO200T4 PO; +CARV6.253 PO; +PRAV80TA2 PO
--- NOTE | 2019-01-30 13:24 | PHYS DOC ---
Past History Past Medical History: A-Fib, Hypertension, UTI, Other Past Surgical History: Hip Replacement, Other Additional Past Surgical Histo: rt elbow(hardware) Alcohol Use: None Drug Use: None Adult General Chief Complaint Chief Complaint: MECHANICAL FALL HPI HPI Patient is an 83-year-old female, who presents to the emergency department via EMS after a fall. According to EMS report, the patient had an unwitnessed fall, trying to get from her bed to her wheelchair, something she was doing without assistance. She does not have any loss of consciousness, but she does complain of pain at the back of her head, she states she did strike her head. EMS applied a cervical collar although the patient's denies any neck pain. She denies any other painful areas or injuries. She denies any back pain, or extremity pain or injuries, With the exception of a small skin tear on her right forearm, which has been Steri-Stripped and dressed by the snf. There are no alleviating or exacerbating factors to her symptoms. The patient also has a urinalysis which was collected around January 26, at the nursing facility, which shows greater than 50 white blood cells, but she has not been put on antibiotics. A call to the nursing facility states that the nurse just saw the results today, and the patient has not been placed on any medication. She will be given a prescription for antibiotics based on her most recent urine culture at this facility. Review of Systems Review of Systems Constitutional: Denies fever or chills [] Eyes: Denies change in visual acuity, redness, or eye pain [] HENT: Denies nasal congestion or sore throat [] Respiratory: Denies cough or shortness of breath [] Cardiovascular: The patient denies any shortness of breath, chest pain, palpitations, or orthopnea [] GI: Denies abdominal pain, nausea, vomiting, bloody stools or diarrhea [] : Denies dysuria or hematuria [] Musculoskeletal: Denies back pain or joint pain [] Integument: Denies rash or skin lesions [] Neurologic: Denies focal weakness or sensory changes, other than a headache. [] Endocrine: Denies polyuria or polydipsia [] All other systems were reviewed and found to be within normal limits, except as documented in this note. Allergies Allergies Allergies Coded Allergies Type Severity Reaction Last Updated Verified Sulfa (Sulfonamide Antibiotics) Allergy Intermediate Hives 05/16/17 Yes codeine Allergy Intermediate Rash 04/23/15 Yes metaxalone Allergy Intermediate Unknown 04/23/15 Yes nitrofurantoin Allergy Intermediate Itching 04/23/15 Yes sulfamethoxazole Allergy Intermediate Rash 04/23/15 Yes trimethoprim Allergy Intermediate Rash 04/23/15 Yes Physical Exam Physical Exam PHYSICAL EXAM: CONSTITUTIONAL: Well developed, well nourished HEAD: normocephalic, there is a contusion and some tenderness to palpation on the posterior scalp, without any laceration, the remainder of the cranium is atraumatic EENT: PERRL, EOMI. Conjunctivae normal color, sclerae non-icteric; moist mucous membranes. NECK: Cervical spine exam is limited secondary to the presence of a cervical collar but there is no gross tenderness to palpation. LUNGS: Lungs CTA, breathing even and unlabored. Normal air movement. HEART: Regular rate and rhythm, no murmur CHEST: No deformity; non-tender ABDOMEN: The abdomen is soft, and non-tender, no masses or bruits. EXTREM: Normal ROM; no deformity, no calf tenderness. Normal pulses palpable in all extremities. There is no pedal edema. There is normal range of motion in all extremities, the hips and pelvis are nontender. There is a skin tear on the right upper extremity, forearm, which has been Steri-Stripped. SKIN: No rash; no diaphoresis NEURO: Alert; normal speech and cognition; CN's grossly intact; strength grossly intact without focal deficit. BACK: No CVA TTP. EKG EKG [] Radiology/Procedures Radiology/Procedures PROCEDURE: CT HEAD AND CERVICAL SPINE WO CT HEAD AND CERVICAL SPINE WO Date: 01/30/2019 1:15 PM Clinical Indication: Pain, fall Comparison: 11/29/2018. Technique: 5 mm axial tomographic images were obtained of the head without contrast. These were viewed on brain and bone windows. Noncontrast CT of the cervical spine was performed. Sagittal and coronal reformats were performed and evaluated. One or more of the following dose reduction techniques were utilized: Automated exposure control (AEC), Adjustment of mA and/or kV according to patient size, Use of iterative reconstruction technique such as ASiR, CT scan done according to ALARA and image gently/image wisely HEAD FINDINGS: Mild generalized cerebral and cerebellar volume loss. Mild nonspecific periventricular hypoattenuation, most commonly seen with chronic small vessel ischemic disease. No intra- or extra-axial mass or fluid collection. No acute hemorrhage. The ventricles are normal in size, shape, and morphology. The burrows-white matter junction is normal. The basilar cisterns are patent. The visualized paranasal sinuses are normal. The visualized portions of the orbits and globes are normal. The mastoid air cells are clear. No aggressive osseous lesion or fracture. CERVICAL SPINE FINDINGS: The cervical spine is normally aligned. No acute fracture. No aggressive lytic or blastic osseous lesions. Mild to moderate multilevel degenerative disc space height loss. Multilevel mild spinal canal stenosis secondary to disc protrusions and marginal osteophytes. Multilevel mild and moderate neuroforaminal narrowing secondary to uncovertebral arthrosis. Multilevel mild and moderate facet arthrosis. The thyroid gland is normal. No cervical lymphadenopathy. Bilateral carotid atherosclerosis. The visualized aerodigestive tract is normal. IMPRESSION: 1. No acute intracranial process. 2. No acute cervical spine fracture.[] Course & Med Decision Making Course & Med Decision Making Pertinent Labs and Imaging studies reviewed. (See chart for details) [] Dragon Disclaimer Dragon Disclaimer This electronic medical record was generated, in whole or in part, using a voice recognition dictation system. Departure Departure: Impression: Primary Impression: Closed head injury Additional Impressions: Accidental fall Urinary tract infection Disposition: 01 HOME, SELF-CARE Condition: STABLE Referrals: ADELA ENGEL (PCP) Patient Instructions: Fall Prevention and Home Safety, Fall Prevention in Hospitals, Head Injury, Adult, Urinary Tract Infection Scripts Cephalexin (KEFLEX) 500 Mg Capsule 1 CAP PO TID for UTI for 7 Days, #21 CAP 0 Refills Prov: DWAYNE LAN MD 01/30/19 Problem Qualifiers DWAYNE LAN MD Jan 30, 2019 13:23
[2019-01-30] MEDS ORDERED: CEPH-264 PO (13:27)
--- NOTE | 2019-01-30 13:57 | RAD ---
CT HEAD AND CERVICAL SPINE WO Date: 01/30/2019 1:15 PM Clinical Indication: Pain, fall Comparison: 11/29/2018. Technique: 5 mm axial tomographic images were obtained of the head without contrast. These were viewed on brain and bone windows. Noncontrast CT of the cervical spine was performed. Sagittal and coronal reformats were performed and evaluated. One or more of the following dose reduction techniques were utilized: Automated exposure control (AEC), Adjustment of mA and/or kV according to patient size, Use of iterative reconstruction technique such as ASiR, CT scan done according to ALARA and image gently/image wisely HEAD FINDINGS: Mild generalized cerebral and cerebellar volume loss. Mild nonspecific periventricular hypoattenuation, most commonly seen with chronic small vessel ischemic disease. No intra- or extra-axial mass or fluid collection. No acute hemorrhage. The ventricles are normal in size, shape, and morphology. The burrows-white matter junction is normal. The basilar cisterns are patent. The visualized paranasal sinuses are normal. The visualized portions of the orbits and globes are normal. The mastoid air cells are clear. No aggressive osseous lesion or fracture. CERVICAL SPINE FINDINGS: The cervical spine is normally aligned. No acute fracture. No aggressive lytic or blastic osseous lesions. Mild to moderate multilevel degenerative disc space height loss. Multilevel mild spinal canal stenosis secondary to disc protrusions and marginal osteophytes. Multilevel mild and moderate neuroforaminal narrowing secondary to uncovertebral arthrosis. Multilevel mild and moderate facet arthrosis. The thyroid gland is normal. No cervical lymphadenopathy. Bilateral carotid atherosclerosis. The visualized aerodigestive tract is normal. IMPRESSION: 1. No acute intracranial process. 2. No acute cervical spine fracture. Electronically signed by: Blue Liang MD (01/30/2019 1:55 PM) [facility]
[2019-01-30 14:08] VITALS: BP 167/77
== END 2019-01-30 14:54 | disposition home or self-care (01) ==
LOC: ER 13:08
DX: S00.03XA Contusion of scalp, initial encounter (principal); N39.0 Urinary tract infection, site not specified; I48.91 Unspecified atrial fibrillation; I10 Essential (primary) hypertension; Z87.440 Personal history of urinary (tract) infections; Z88.2 Allergy status to sulfonamides; Z88.5 Allergy status to narcotic agent; Z88.8 Allergy status to other drugs, medicaments and biological substances; Z88.1 Allergy status to other antibiotic agents; W06.XXXA Fall from bed, initial encounter; Y93.89 Activity, other specified; Y92.128 Other place in nursing home as the place of occurrence of the external cause; Y99.8 Other external cause status
CPT/HCPCS: 70450; 72125; 99284-25

== ENCOUNTER 2019-02-05 10:11 | Emergency (ER) | payer OTHER ==
[~2019-02-05] VITALS: Ht 162.6 cm; Wt 67.6 kg
[~2019-02-05 10:11] MED LIST changes: +CEPH-264 PO
[2019-02-05 10:40] VITALS: BP 151/63
--- NOTE | 2019-02-05 10:41 | PHYS DOC ---
Past History Past Medical History: A-Fib, Hypertension, UTI, Other Past Surgical History: Hip Replacement, Other Additional Past Surgical Histo: rt elbow(hardware) Alcohol Use: None Drug Use: None Adult General Chief Complaint Chief Complaint: MECHANICAL FALL HPI HPI Patient is an 83-year-old female who presents to the emergency department for evaluation. She states that she needed to get out of bed, and pushed the call button at her nursing facility, but after no one responded to her after a half hour, she tried getting up on her own, and states that she slid out of her bed, landing on her buttocks. She does report some mild discomfort in her sacral/coccyx area, but no other complaints or pain. She denies hitting her head todayshe does have a contusion on the posterior scalp, but this appears to be from a fall that she sustained a few days ago, when I had also seen her in the emergency department. She denies any neck pain, back pain, or extremity or hip pain at this time. She has no other concerns. She does take a prophylactic dose of Lovenox, 30 mg daily, for DVT prophylaxis. Review of Systems Review of Systems Constitutional: Denies fever or chills [] Eyes: Denies change in visual acuity, redness, or eye pain [] HENT: Denies nasal congestion or sore throat [] Respiratory: Denies cough or shortness of breath [] Cardiovascular: The patient denies any shortness of breath, chest pain, palpitations, or orthopnea[] GI: Denies abdominal pain, nausea, vomiting, bloody stools or diarrhea [] : Denies dysuria or hematuria [] Musculoskeletal: Denies back pain or joint pain [] Integument: Denies rash or skin lesions [] Neurologic: Denies headache, focal weakness or sensory changes [] Allergies Allergies Allergies Coded Allergies Type Severity Reaction Last Updated Verified Sulfa (Sulfonamide Antibiotics) Allergy Intermediate Hives 05/16/17 Yes codeine Allergy Intermediate Rash 04/23/15 Yes metaxalone Allergy Intermediate Unknown 04/23/15 Yes nitrofurantoin Allergy Intermediate Itching 04/23/15 Yes sulfamethoxazole Allergy Intermediate Rash 04/23/15 Yes trimethoprim Allergy Intermediate Rash 04/23/15 Yes Physical Exam Physical Exam PHYSICAL EXAM: CONSTITUTIONAL: Well developed, well nourished HEAD: normocephalic, there is a subacute contusion on the posterior scalp, cranium is otherwise atraumatic EENT: PERRL, EOMI. Conjunctivae normal color, sclerae non-icteric; moist mucous membranes. NECK: Supple, non-tender; no meningismus.There is full, painless range of motion of the cervical spine, without any focal bony midline tenderness to palpation. LUNGS: Lungs CTA, breathing even and unlabored. Normal air movement. HEART: Regular rate and rhythm, no murmur CHEST: No deformity; non-tender ABDOMEN: The abdomen is soft, and non-tender, no masses or bruits. EXTREM: Normal ROM; no deformity, no calf tenderness. Normal pulses palpable in all extremities. There is no pedal edema. There is normal range of motion of the hips. There is no hip or pelvis tenderness to palpation. The sacrum and coccyx are nontender. SKIN: No rash; no diaphoresis NEURO: Alert; normal speech, mildly impaired cognition; CN's grossly intact; strength grossly intact without focal deficit. BACK: No CVA TTP.There is no bony tenderness to palpation of the thoracic or lumbar spine. EKG EKG [] Radiology/Procedures Radiology/Procedures [] Dragon Disclaimer Dragon Disclaimer This electronic medical record was generated, in whole or in part, using a voice recognition dictation system. Departure Departure: Impression: Primary Impression: Accidental fall Disposition: 01 HOME, SELF-CARE Condition: STABLE Referrals: ADELA ENGEL (PCP) Patient Instructions: Contusion, Fall Prevention and Home Safety, Fall Prevention in [facility] DWAYNE LAN MD Feb 05, 2019 10:41
== END 2019-02-05 11:36 | disposition home or self-care (01) ==
LOC: ER 10:11
DX: M53.3 Sacrococcygeal disorders, not elsewhere classified (principal); I48.91 Unspecified atrial fibrillation; I10 Essential (primary) hypertension; Z87.440 Personal history of urinary (tract) infections; Z88.2 Allergy status to sulfonamides; Z88.5 Allergy status to narcotic agent; Z88.1 Allergy status to other antibiotic agents; Z88.8 Allergy status to other drugs, medicaments and biological substances; W06.XXXA Fall from bed, initial encounter; Y93.89 Activity, other specified; Y92.89 Other specified places as the place of occurrence of the external cause; Y99.8 Other external cause status
CPT/HCPCS: 99284

== ENCOUNTER → 2019-07-13 | Outpatient (CLI) | payer SELFPAY ==
--- NOTE | 2019-07-13 15:00 | RAD ---
EXAM: HIP BILATERAL WITH PELVIS 07/13/2019 12:00 AM CLINICAL INDICATION:Hip pain COMPARISON:Left hip radiograph 12/23/2018 TECHNIQUE:AP view of the pelvis, AP and frog-leg lateral views of the left hip. Frog leg lateral view of the right hip. FINDINGS:There are healing fractures of the high left superior pubic ramus near the pubic root and of the left inferior pubic ramus near the pubic body, unchanged in alignment from prior CT. Additional healing fractures of right superior pubic ramus near the pubic body and of the right inferior pubic ramus are new from prior CT. There are bilateral total hip prostheses with new acute or subacute bilateral greater trochanter fractures, mildly displaced. There has been interval bilateral sacroplasty. IMPRESSION: 1. Bilateral hip prosthesis with new, mildly displaced acute or subacute greater trochanter fractures. 2. Healing bilateral superior and inferior pubic rami fractures. The right pubic rami fractures are new from 12/25/2018. Electronically signed by: Darby Amador MD (07/13/2019 2:58 PM) [id number]
== END | disposition home or self-care (01) ==
LOC: DXRAD 12:29
PROVIDERS: ATTEND Family Medicine
DX: S32.592D Other specified fracture of left pubis, subsequent encounter for fracture with routine healing (principal); S32.591D Other specified fracture of right pubis, subsequent encounter for fracture with routine healing; S32.591A Other specified fracture of right pubis, initial encounter for closed fracture; X58.XXXA Exposure to other specified factors, initial encounter; Y93.9 Activity, unspecified; Y92.89 Other specified places as the place of occurrence of the external cause; Y99.8 Other external cause status; Z91.81 History of falling
CPT/HCPCS: 73521

== ENCOUNTER 2019-07-31 11:01 | Emergency (ER) | payer MEDICARE ==
[~2019-07-31] VITALS: Ht 162.6 cm; Wt 59.7 kg
[2019-07-31 11:05] VITALS: BP 138/53
--- NOTE | 2019-07-31 12:16 | RAD ---
CT HEAD WO CONTRAST History: Reason: fall severe headache / Spl. Instructions: / History: Comparison: None. Technique: Noncontrast CT imaging was performed of the head. Exposure: One or more of the following individualized dose reduction techniques were utilized for this examination: 1. Automated exposure control 2. Adjustment of the mA and/or kV according to patient size 3. Use of iterative reconstruction technique. Findings: No intracranial hemorrhage. No mass effect. No hydrocephalus. Mild brain parenchymal volume loss. Mild foci of decreased attenuation within the hemispheric white matter, most often due to chronic microvascular ischemia, unchanged. Chronic left basal ganglia lacunar infarct, unchanged. Imaged orbits are unremarkable. Imaged paranasal sinuses and mastoid air cells are clear. No acute calvarial fracture. Impression: 1. No acute intracranial abnormality. 2. Chronic left basal ganglia lacunar infarct, unchanged. Electronically signed by: Dann Meza DO (07/31/2019 12:13 PM) [facility]
[2019-07-31 12:17] LABS: BASO % 1 % (0-3); EOS # 0.2 x10^3/uL (0.0-0.7); EOS % 3 % (0-3); HEMATOCRIT 30.3 % (36.0-47.0); HEMOGLOBIN 10.2 g/dL (12.0-15.5); LYMPH # 0.5 x10^3/uL (1.0-4.8); LYMPH % 8 % (24-48); MEAN CORPUSCULAR HEMOGLOBIN 36 pg (25-35); MEAN CORPUSCULAR HGB CONC 34 g/dL (31-37); MEAN CORPUSCULAR VOLUME 106 fL (79-100); MONO # 0.8 x10^3/uL (0.0-1.1); MONO % 12 % (0-9); NEUT # 4.9 x10^3uL (1.8-7.7); NEUT % 76 % (31-73); PLATELET COUNT 367 x10^3/uL (140-400); RED BLOOD COUNT 2.85 x10^6/uL (3.50-5.40); RED CELL DISTRIBUTION WIDTH 15.9 % (11.5-14.5); WHITE BLOOD COUNT 6.4 x10^3/uL (4.0-11.0)
--- NOTE | 2019-07-31 12:21 | RAD ---
SHOULDER BILAT 2+V History: Reason: trauma pain. Technique: 3 views bilateral shoulders. Comparison: December 23, 2018 left shoulder. Chest x-ray December 21, 2018 Findings: Left shoulder: Normal alignment of the left glenohumeral and acromioclavicular joints. 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 Chondrocalcinosis. Right shoulder: No dislocation. Destructive/erosive changes of the right humeral head, new compared to 2019. Calcifications within the region of the right glenohumeral joint. No definite acute fracture. Impression: 1. New significant destructive/erosive changes of the right humeral head compared to 2019. Findings may represent inflammatory arthropathy although infection is not excluded. Recommend further clinical evaluation. MRI can further evaluate as clinically warranted. 2. Severe left glenohumeral DJD, unchanged. Electronically signed by: Dann Meza DO (07/31/2019 12:19 PM) [facility]
--- NOTE | 2019-07-31 12:36 | PHYS DOC ---
Past History Past Medical History: A-Fib, Anemia, Anxiety, CHF, High Cholesterol, Hypertension, Renal Failure, UTI, Other Additional Past Medical Histor: ULCERS, PACEMAKER Past Surgical History: Hip Replacement, Other Additional Past Surgical Histo: rt elbow(hardware) Alcohol Use: None Drug Use: None General Adult EDM: Chief Complaint: MECHANICAL FALL HPI: HPI: Patient is a 84-year-old female who presents today after she tripped and fell several days ago. She states that she did hit her head and is unsure whether she lost consciousness. At the time, she called EMS who came to her house and helped her back up but she refused treatment. Since that time she has had pretty severe headaches but denies any lateralizing neurologic weakness. She states her gait has been a little unsteady but she thinks is just because she is sore. She also complains of right shoulder pain. She has been moving her arm but it is more painful than usual. She denies any other injuries. She has not had any fever chills or sweats. She has a cough and a little bit of shortness of breath but she states this is chronic and is no better or worse than it has been in quite some time. [] Review of Systems: Review of Systems: Constitutional: Denies fever or chills Eyes: Denies change in visual acuity HENT: Denies nasal congestion or sore throat Respiratory: Denies cough or shortness of breath Cardiovascular: Denies chest pain or edema GI: Denies abdominal pain, nausea, vomiting, bloody stools or diarrhea : Denies dysuria Musculoskeletal: Reports right shoulder pain Integument: Denies rash Neurologic: Reports headache Endocrine: Denies polyuria or polydipsia Lymphatic: Denies swollen glands Psychiatric: Reports depression Heart Score: Risk Factors: Risk Factors: DM, Current or recent (<one month) smoker, HTN, HLP, family history of CAD, obesity. Risk Scores: Score 0 - 3: 2.5% MACE over next 6 weeks - Discharge Home Score 4 - 6: 20.3% MACE over next 6 weeks - Admit for Clinical Observation Score 7 - 10: 72.7% MACE over next 6 weeks - Early Invasive Strategies Allergies: Allergies: Allergies Coded Allergies Type Severity Reaction Last Updated Verified Sulfa (Sulfonamide Antibiotics) Allergy Intermediate Hives 05/16/17 Yes codeine Allergy Intermediate Rash 04/23/15 Yes metaxalone Allergy Intermediate Unknown 04/23/15 Yes nitrofurantoin Allergy Intermediate Itching 04/23/15 Yes sulfamethoxazole Allergy Intermediate Rash 04/23/15 Yes trimethoprim Allergy Intermediate Rash 04/23/15 Yes Physical Exam: PE: Constitutional: Frail elderly female no distress [] HENT: Normocephalic, atraumatic, bilateral external ears normal, oropharynx moist, no oral exudates, nose normal. [] Eyes: PERRLA, EOMI, conjunctiva normal, no discharge. [] Neck: Normal range of motion, no tenderness, supple, no stridor. [] Cardiovascular:Heart rate regular rhythm, no murmur [] Lungs & Thorax: Bilateral breath sounds clear to auscultation [] Abdomen: Bowel sounds normal, soft, no tenderness, no masses, no pulsatile masses. [] Skin: Warm, dry, no erythema, no rash. [] Back: No tenderness, no CVA tenderness. [] Extremities: Mild tender to right shoulder decreased range of motion secondary to pain but no obvious deformity. [] Neurologic: Alert and oriented X 3, normal motor function, normal sensory function, no focal deficits noted. [] Psychologic: Depressed affect [] Current Patient Data: Labs: Laboratory Tests Test 07/31/19 12:03 White Blood Count 6.4 x10^3/uL (4.0-11.0) Red Blood Count 2.85 x10^6/uL (3.50-5.40) L Hemoglobin 10.2 g/dL (12.0-15.5) L Hematocrit 30.3 % (36.0-47.0) L Mean Corpuscular Volume 106 fL (79-100) H Mean Corpuscular Hemoglobin 36 pg (25-35) H Mean Corpuscular Hemoglobin Concent 34 g/dL (31-37) Red Cell Distribution Width 15.9 % (11.5-14.5) H Platelet Count 367 x10^3/uL (140-400) Neutrophils (%) (Auto) 76 % (31-73) H Lymphocytes (%) (Auto) 8 % (24-48) L Monocytes (%) (Auto) 12 % (0-9) H Eosinophils (%) (Auto) 3 % (0-3) Basophils (%) (Auto) 1 % (0-3) Neutrophils # (Auto) 4.9 x10^3uL (1.8-7.7) Lymphocytes # (Auto) 0.5 x10^3/uL (1.0-4.8) L Monocytes # (Auto) 0.8 x10^3/uL (0.0-1.1) Eosinophils # (Auto) 0.2 x10^3/uL (0.0-0.7) Basophils # (Auto) 0.0 x10^3/uL (0.0-0.2) Vital Signs: Vital Signs Date Time Temp Pulse Resp B/P (MAP) Pulse Ox O2 Delivery O2 Flow Rate FiO2 07/31/19 11:05 60 20 138/53 (81) 97 EKG: EKG: [] Radiology/Procedures: Radiology/Procedures: []PROCEDURE: CT HEAD WO CONTRAST CT HEAD WO CONTRAST History: Reason: fall severe headache / Spl. Instructions: / History: Comparison: None. Technique: Noncontrast CT imaging was performed of the head. Exposure: One or more of the following individualized dose reduction techniques were utilized for this examination: 1. Automated exposure control 2. Adjustment of the mA and/or kV according to patient size 3. Use of iterative reconstruction technique. Findings: No intracranial hemorrhage. No mass effect. No hydrocephalus. Mild brain parenchymal volume loss. Mild foci of decreased attenuation within the hemispheric white matter, most often due to chronic microvascular ischemia, unchanged. Chronic left basal ganglia lacunar infarct, unchanged. Imaged orbits are unremarkable. Imaged paranasal sinuses and mastoid air cells are clear. No acute calvarial fracture. Impression: 1. No acute intracranial abnormality. 2. Chronic left basal ganglia lacunar infarct, unchanged. Impressions: PROCEDURE: SHOULDER BILAT 2+V SHOULDER BILAT 2+V History: Reason: trauma pain. Technique: 3 views bilateral shoulders. Comparison: December 23, 2018 left shoulder. Chest x-ray December 21, 2018 Findings: Left shoulder: Normal alignment of the left glenohumeral and acromioclavicular joints. 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 Chondrocalcinosis. Right shoulder: No dislocation. Destructive/erosive changes of the right humeral head, new compared to 2019. Calcifications within the region of the right glenohumeral joint. No definite acute fracture. Impression: 1. New significant destructive/erosive changes of the right humeral head compared to 2019. Findings may represent inflammatory arthropathy although infection is not excluded. Recommend further clinical evaluation. MRI can further evaluate as clinically warranted. 2. Severe left glenohumeral DJD, unchanged. Course & Med Decision Making: Course & Med Decision Making Pertinent Labs and Imaging studies reviewed. (See chart for details) [] Dragon Disclaimer: Dragon Disclaimer: This electronic medical record was generated, in whole or in part, using a voice recognition dictation system. Departure Departure: Impression: Primary Impression: Head contusion Qualified Codes: S00.03XA - Contusion of scalp, initial encounter Additional Impressions: Sprain of right shoulder Qualified Codes: S43.401A - Unspecified sprain of right shoulder joint, initial encounter Fall at home Qualified Codes: W19.XXXA - Unspecified fall, initial encounter; Y92.009 - Unspecified place in unspecified non-institutional (private) residence as the place of occurrence of the external cause Disposition: 01 HOME/RESIDENCE PRIOR TO ADM Condition: STABLE Referrals: ADELA ENGEL (PCP) Patient Instructions: Head Injury, Adult Additional Instructions: Return to the emergency department with any new or concerning symptoms CHAKA NICOLE DO Jul 31, 2019 12:36
[2019-07-31 13:12] LABS: BACTERIA,URINE MOD /HPF (0-FEW); BILIRUBIN,URINE NEG (NEG); CLARITY,URINE HAZY; COLOR,URINE YELLOW; GLUCOSE,URINE NEG (NEG); NITRITE,URINE NEG (NEG); SQUAMOUS EPITHELIAL CELL,UR OCC /LPF; UROBILINOGEN,URINE 0.2 mg/dL (0.2 mg/dL); WBC,URINE TNTC /HPF (0-4)
== END 2019-07-31 12:56 | disposition home or self-care (01) ==
LOC: ER 11:01
DX: S43.401A Unspecified sprain of right shoulder joint, initial encounter (principal); S00.03XA Contusion of scalp, initial encounter; I48.91 Unspecified atrial fibrillation; I13.0 Hypertensive heart and chronic kidney disease with heart failure and stage 1 through stage 4 chronic kidney disease, or unspecified chronic kidney disease; N18.9 Chronic kidney disease, unspecified; I50.9 Heart failure, unspecified; E78.00 Pure hypercholesterolemia, unspecified; Z87.440 Personal history of urinary (tract) infections; Z86.2 Personal history of diseases of the blood and blood-forming organs and certain disorders involving the immune mechanism; Z95.0 Presence of cardiac pacemaker; Z88.2 Allergy status to sulfonamides; Z88.5 Allergy status to narcotic agent; Z88.8 Allergy status to other drugs, medicaments and biological substances; W01.0XXA Fall on same level from slipping, tripping and stumbling without subsequent striking against object, initial encounter; Y93.89 Activity, other specified; Y92.009 Unspecified place in unspecified non-institutional (private) residence as the place of occurrence of the external cause; Y99.8 Other external cause status
CPT/HCPCS: 36415; 70450; 73030; 81001; 85025; 87086; 99285

== ENCOUNTER 2019-10-31 01:09 | Emergency (ER) | payer MEDICARE ==
[~2019-10-31] VITALS: Ht 162.6 cm; Wt 59.7 kg
--- NOTE | 2019-10-31 01:28 | PHYS DOC ---
Past History Past Medical History: A-Fib, Anemia, Anxiety, CHF, High Cholesterol, Hypertension, Renal Failure, UTI, Other Additional Past Medical Histor: ULCERS, PACEMAKER Past Surgical History: Hip Replacement, Other Additional Past Surgical Histo: rt elbow(hardware) Alcohol Use: None Drug Use: None General Adult EDM: Chief Complaint: Fall HPI: HPI: 84-year-old female presents via EMS after fall at home. The patient was going into her bathroom where there is a red. She lifted the front of her walker over the rug and fell backwards. She hit the back of her head on the floor. She knows that she has a bruise back there. She also complains of some tailbone tenderness. She denies loss of consciousness. She has a mild headache. She denies fever or chills. She is currently being treated for UTI with amoxicillin. She denies any other complaints at this time. Review of Systems: Review of Systems: Constitutional: Denies fever or chills Eyes: Denies change in visual acuity HENT: Denies nasal congestion or sore throat Respiratory: Denies cough or shortness of breath Cardiovascular: Denies chest pain or edema GI: Denies abdominal pain, nausea, vomiting, bloody stools or diarrhea : Denies dysuria Musculoskeletal: Denies back pain or joint pain Integument: Denies rash Neurologic: Headache. Denies focal weakness or sensory changes Endocrine: Denies polyuria or polydipsia Lymphatic: Denies swollen glands Psychiatric: Denies depression or anxiety Heart Score: Risk Factors: Risk Factors: DM, Current or recent (<one month) smoker, HTN, HLP, family history of CAD, obesity. Risk Scores: Score 0 - 3: 2.5% MACE over next 6 weeks - Discharge Home Score 4 - 6: 20.3% MACE over next 6 weeks - Admit for Clinical Observation Score 7 - 10: 72.7% MACE over next 6 weeks - Early Invasive Strategies Allergies: Allergies: Allergies Coded Allergies Type Severity Reaction Last Updated Verified Sulfa (Sulfonamide Antibiotics) Allergy Intermediate Hives 05/16/17 Yes codeine Allergy Intermediate Rash 04/23/15 Yes metaxalone Allergy Intermediate Unknown 04/23/15 Yes nitrofurantoin Allergy Intermediate Itching 04/23/15 Yes sulfamethoxazole Allergy Intermediate Rash 04/23/15 Yes trimethoprim Allergy Intermediate Rash 04/23/15 Yes Physical Exam: PE: Constitutional: Well developed, well nourished, no acute distress, non-toxic appearance. [] HENT: Normocephalic, ecchymosis of the occipital scalp, bilateral external ears normal, oropharynx moist, no oral exudates, nose normal. [] Eyes: PERRLA, EOMI, conjunctiva normal, no discharge. [] Neck: Normal range of motion, no tenderness, supple, no stridor. [] Cardiovascular: Heart rate regular rhythm, no murmur [] Lungs & Thorax: Bilateral breath sounds clear to auscultation [] Abdomen: Bowel sounds normal, soft, no tenderness, no masses, no pulsatile masses. [] Skin: Warm, dry, no erythema, no rash. [] Back: No tenderness, no CVA tenderness. [] Extremities: No tenderness, no cyanosis, no clubbing, ROM intact, no edema. [] Neurologic: Alert and oriented X 3, normal motor function, normal sensory function, no focal deficits noted. [] Psychologic: Affect normal, judgement normal, mood normal. [] EKG: EKG: [] Radiology/Procedures: Radiology/Procedures: [] Impressions: INDICATION: Reason: Fall tonight, hit head, lump on back of head, neck pain / Spl. Instructions: / History: COMPARISON: July 31, 2019 TECHNIQUE: Axial CT images obtained through the head and cervical spine. One or more of the following individualized dose reduction techniques were utilized for this examination: 1. Automated exposure control; 2. Adjustment of the mA and/or kV according to patient size; 3. Use of iterative reconstruction technique. FINDINGS: Head: Diffuse prominence of ventricles and sulci which can be seen with age-related volume loss. Calcific atherosclerosis. Bowing of the nasal septum to the right. Scattered foci of low density of the white matter. Nonspecific but can be from chronic small vessel ischemic changes. Left-sided posterior scalp cephalohematoma. No acute intracranial hemorrhage. Cervical spine: Degenerative changes throughout the cervical spine with disc protrusions and osteophyte formation at vertebral body endplates as well as uncovertebral and facet hypertrophy with multilevel central canal and neural foraminal stenosis. Osseous demineralization. Mild retrolisthesis of C3 on 4, C4 on 5, C5 on 6 with mild anterolisthesis of C6 on 7, C7 on T1 and T1 on T2. Mild compression fracture of T3 superior endplate. Air-filled dilatation of the partially visualized esophagus. Interstitial thickening at the lung apices with some groundglass opacities. Calcific atherosclerosis. IMPRESSION: * No acute intracranial hemorrhage. * Low-density the white matter. Nonspecific but can be seen with chronic small vessel ischemic changes. * Degenerative changes of the cervical spine. * Mild compression fracture of superior endplate of T3 which appears new when compared to November 2018. * There is some interstitial thickening at the lung apices with groundglass opacities. Would correlate for possible causes such as mild edema or interstitial infiltrate. * Pannus formation at C1-2 again seen with some erosion seen as well as some mass effect on the anterior aspect of the thecal sac. Electronically signed by: Isidoro Coleman MD (10/31/2019 2:29 AM) [id number] DICTATED AND SIGNED BY: ISIDORO COLEMAN MD DATE: 10/31/19228 CC: SOFI LINO DO; ADELA ENGEL ~ INDICATION: Reason: Fall tonight and recent falls, tailbone pain / Spl. Instructions: / History: COMPARISON: November 2018 IMPRESSION: Sacrum and coccyx: 3 views obtained. Bilateral hip arthroplasty. High density material is seen at the sacrum bilaterally which could be from post sacral plasty changes. Step-off and callus formation at the patient's known fractures at pubic rami with some lucency seen which could be osseous resorption related to the fractures. Degenerative changes of the lower lumbar spine with hypertrophic changes. Limited assessment of the sacrum secondary to osseous demineralization. Alignment of the distal sacrum and coccyx is similar to prior CT from November 2018 Electronically signed by: Isidoro Coleman MD (10/31/2019 2:14 AM) [id number] DICTATED AND SIGNED BY: ISIDORO COLEMAN MD DATE: 10/31/19213 CC: SOFI LINO DO; ADELA ENGEL ~ Course & Med Decision Making: Course & Med Decision Making Pertinent Labs and Imaging studies reviewed. (See chart for details) The patient's CT of the head and cervical spine is negative for intracranial hemorrhage or cervical fracture. There are some incidental findings such as possible slight compression fracture of T3. See official report for more details. The patient is not complaining of pain in this region. The patient's labs are significant for an anemia and an elevated creatinine. These are both similar to previous lab results in the chart. The x-ray of her coccyx is negative for fracture. The patient will likely be a bit sore, but is able go home. She is stable for discharge at this time. [] Dragon Disclaimer: Dragon Disclaimer: This electronic medical record was generated, in whole or in part, using a voice recognition dictation system. Departure Departure: Impression: Primary Impression: Fall from standing Qualified Codes: W19.XXXA - Unspecified fall, initial encounter Disposition: HOME/RESIDENCE PRIOR TO ADM Condition: STABLE Referrals: ADELA ENGEL (PCP) Patient Instructions: Fall Prevention and Home Safety, [id number] Justification of Admission: Justification of Admission: Justification of Admission Dx: N/A SOFI LINO DO Oct 31, 2019 01:27
[2019-10-31 02:04] LABS: BASO % 1 % (0-3); CALCIUM 9.1 mg/dL (8.5-10.1); CREATININE 1.4 mg/dL (0.6-1.0); EOS # 0.5 x10^3/uL (0.0-0.7); EOS % 8 % (0-3); GFR 35.7; HEMATOCRIT 32.7 % (36.0-47.0); HEMOGLOBIN 10.9 g/dL (12.0-15.5); LYMPH # 1.2 x10^3/uL (1.0-4.8); LYMPH % 21 % (24-48); MEAN CORPUSCULAR HEMOGLOBIN 35 pg (25-35); MEAN CORPUSCULAR HGB CONC 33 g/dL (31-37); MEAN CORPUSCULAR VOLUME 106 fL (79-100); MONO # 0.7 x10^3/uL (0.0-1.1); MONO % 12 % (0-9); NEUT # 3.3 x10^3uL (1.8-7.7); NEUT % 58 % (31-73); PLATELET COUNT 239 x10^3/uL (140-400); POTASSIUM 4.2 mmol/L (3.5-5.1); RED BLOOD COUNT 3.08 x10^6/uL (3.50-5.40); RED CELL DISTRIBUTION WIDTH 14.8 % (11.5-14.5); WHITE BLOOD COUNT 5.7 x10^3/uL (4.0-11.0)
[2019-10-31 02:11] LABS: ALBUMIN 3.2 g/dL (3.4-5.0); ALBUMIN/GLOBULIN RATIO 0.7 (1.0-1.7); TOTAL BILIRUBIN 0.4 mg/dL (0.2-1.0); TOTAL PROTEIN 8.1 g/dL (6.4-8.2)
--- NOTE | 2019-10-31 02:17 | RAD ---
INDICATION: Reason: Fall tonight and recent falls, tailbone pain / Spl. Instructions: / History: COMPARISON: November 2018 IMPRESSION: Sacrum and coccyx: 3 views obtained. Bilateral hip arthroplasty. High density material is seen at the sacrum bilaterally which could be from post sacral plasty changes. Step-off and callus formation at the patient's known fractures at pubic rami with some lucency seen which could be osseous resorption related to the fractures. Degenerative changes of the lower lumbar spine with hypertrophic changes. Limited assessment of the sacrum secondary to osseous demineralization. Alignment of the distal sacrum and coccyx is similar to prior CT from November 2018 Electronically signed by: Kan Coleman MD (10/31/2019 2:14 AM) [id number]
--- NOTE | 2019-10-31 02:32 | RAD ---
INDICATION: Reason: Fall tonight, hit head, lump on back of head, neck pain / Spl. Instructions: / History: COMPARISON: July 31, 2019 TECHNIQUE: Axial CT images obtained through the head and cervical spine. One or more of the following individualized dose reduction techniques were utilized for this examination: 1. Automated exposure control; 2. Adjustment of the mA and/or kV according to patient size; 3. Use of iterative reconstruction technique. FINDINGS: Head: Diffuse prominence of ventricles and sulci which can be seen with age-related volume loss. Calcific atherosclerosis. Bowing of the nasal septum to the right. Scattered foci of low density of the white matter. Nonspecific but can be from chronic small vessel ischemic changes. Left-sided posterior scalp cephalohematoma. No acute intracranial hemorrhage. Cervical spine: Degenerative changes throughout the cervical spine with disc protrusions and osteophyte formation at vertebral body endplates as well as uncovertebral and facet hypertrophy with multilevel central canal and neural foraminal stenosis. Osseous demineralization. Mild retrolisthesis of C3 on 4, C4 on 5, C5 on 6 with mild anterolisthesis of C6 on 7, C7 on T1 and T1 on T2. Mild compression fracture of T3 superior endplate. Air-filled dilatation of the partially visualized esophagus. Interstitial thickening at the lung apices with some groundglass opacities. Calcific atherosclerosis. IMPRESSION: * No acute intracranial hemorrhage. * Low-density the white matter. Nonspecific but can be seen with chronic small vessel ischemic changes. * Degenerative changes of the cervical spine. * Mild compression fracture of superior endplate of T3 which appears new when compared to November 2018. * There is some interstitial thickening at the lung apices with groundglass opacities. Would correlate for possible causes such as mild edema or interstitial infiltrate. * Pannus formation at C1-2 again seen with some erosion seen as well as some mass effect on the anterior aspect of the thecal sac. Electronically signed by: Kan Coleman MD (10/31/2019 2:29 AM) [id number]
[2019-10-31 03:00] VITALS: BP 163/85
[2019-10-31] MEDS ORDERED: NEOMY/BACITR/POLYMYXIN OINT PACKET. TP ONE (03:30)
== END 2019-10-31 03:40 | disposition home or self-care (01) ==
LOC: ER 01:09
DX: S00.03XA Contusion of scalp, initial encounter (principal); M53.3 Sacrococcygeal disorders, not elsewhere classified; I48.91 Unspecified atrial fibrillation; F41.9 Anxiety disorder, unspecified; I11.0 Hypertensive heart disease with heart failure; I50.9 Heart failure, unspecified; E78.00 Pure hypercholesterolemia, unspecified; Z87.440 Personal history of urinary (tract) infections; Z95.0 Presence of cardiac pacemaker; Z88.2 Allergy status to sulfonamides; Z88.5 Allergy status to narcotic agent; Z88.1 Allergy status to other antibiotic agents; Z88.8 Allergy status to other drugs, medicaments and biological substances; W01.198A Fall on same level from slipping, tripping and stumbling with subsequent striking against other object, initial encounter; Y93.01 Activity, walking, marching and hiking; Y92.89 Other specified places as the place of occurrence of the external cause; Y99.8 Other external cause status
CPT/HCPCS: 36415; 70450; 72125; 72220; 80053; 85025; 99285

== ENCOUNTER 2020-07-27 12:22 | Inpatient (IN) | payer MEDICARE ==
[~2020-07-27] VITALS: Ht 162.6 cm; Wt 56.2 kg
[~2020-07-27 12:22] MED LIST changes: -AMIO200T4 PO; +AMIO200T6 PO; -DRON400T PO; +DRON400T6 PO; -OMEP40CA45 PO; +OMEP40CA7 PO
[2020-07-27] MEDS ORDERED: IV NORMAL SALINE 500ML 500 ML IV ONE (12:30)
--- NOTE | 2020-07-27 12:48 | PHYS DOC ---
Past History Past Medical History: A-Fib, Anemia, Anxiety, CHF, High Cholesterol, Hypertension, Renal Failure, UTI, Other Additional Past Medical Histor: ULCERS, PACEMAKER Past Surgical History: Hip Replacement, Other Additional Past Surgical Histo: rt elbow(hardware) Alcohol Use: None Drug Use: None General Adult EDM: Chief Complaint: ALTERED MENTAL STATUS HPI: HPI: 85-year-old female presents via EMS with altered mental status. EMS reports that the family told them the patient had a fall at midnight. She seemed okay and went back to bed. When she got up this morning things seemed okay but by 9 AM her words were not always making sense and she was using her spoon upside down. The patient went back to sleep at that time. When she woke up she was not answering questions appropriately so they called EMS. That means the patient has been altered for at least 3-1/2 hours, possibly longer. When I asked the patient how she is feeling she says pretty good. Most of her answers make sense but some do not. She got her birthday wrong. She is able to move and hold all 4 extremities without drift. Patient tells me she feels short of breath but denies chest pain. Review of Systems: Review of Systems: Constitutional: Denies fever or chills Eyes: Denies change in visual acuity HENT: Denies nasal congestion or sore throat Respiratory: Denies cough or shortness of breath Cardiovascular: Denies chest pain or edema GI: Denies abdominal pain, nausea, vomiting, bloody stools or diarrhea : Denies dysuria Musculoskeletal: Denies back pain or joint pain Integument: Denies rash Neurologic: Denies headache, focal weakness or sensory changes Endocrine: Denies polyuria or polydipsia Lymphatic: Denies swollen glands Psychiatric: Denies depression or anxiety Current Medications: Current Meds: Current Medications Medications (Trade) Dose Ordered Sig/Juliana Start Time Stop Time Status Last Admin Dose Admin Sodium Chloride 500 ml @ 0 mls/hr 1X ONCE 07/27/20 12:30 07/27/20 12:31 DC Allergies: Allergies: Allergies Coded Allergies Type Severity Reaction Last Updated Verified Sulfa (Sulfonamide Antibiotics) Allergy Intermediate Hives 05/16/17 Yes codeine Allergy Intermediate Rash 04/23/15 Yes metaxalone Allergy Intermediate Unknown 04/23/15 Yes nitrofurantoin Allergy Intermediate Itching 04/23/15 Yes sulfamethoxazole Allergy Intermediate Rash 04/23/15 Yes trimethoprim Allergy Intermediate Rash 04/23/15 Yes Physical Exam: PE: Constitutional: Well developed, well nourished, no acute distress, non-toxic appearance. [] HENT: Normocephalic, atraumatic, bilateral external ears normal, oropharynx moist, no oral exudates, nose normal. [] Eyes: PERRLA, EOMI, conjunctiva normal, no discharge. [] Neck: Normal range of motion, no tenderness, supple, no stridor. [] Cardiovascular:Heart rate regular rhythm, no murmur [] Lungs & Thorax: Bilateral breath sounds clear to auscultation [] Abdomen: Bowel sounds normal, soft, no tenderness, no masses, no pulsatile masses. [] Skin: Warm, dry, no erythema, no rash. [] Back: No tenderness, no CVA tenderness. [] Extremities: No tenderness, no cyanosis, no clubbing, ROM intact, no edema. [] Neurologic: Alert and oriented X 3, normal motor function, normal sensory function, no focal deficits noted. [] Psychologic: Affect normal, judgement normal, mood normal. [] EKG: EKG: Paced rhythm, rate 60, rightward axis, no significant ST elevation or depression. [] Radiology/Procedures: Radiology/Procedures: [] Impressions: CT HEAD/BRAIN WO Clinical indications: Altered mental status. COMPARISON: October 31, 2019. Technique: Noncontrast axial cross sectional scanning of the head was performed. PQRS compliance Statement One or more of the following individualized dose reduction techniques were utilized for this study: 1. Automated exposure control 2. Adjustment of the mA and/or kV according to patient size 3. Use of iterative reconstruction technique Findings: No acute intracranial hemorrhage or midline shift or mass-effect or hydrocephalus or extra-axial fluid collection is seen. Chronic periventricular white matter hypodensity is seen consistent with chronic small vessel ischemic disease in this age group. No new focal hypodense area or sulci effacement is seen to indicate an acute infarct or edema radiographically. No skull fracture or pneumocephalus is seen. No opacification of the mastoid sinuses or the middle ear cavities or the paranasal sinuses is seen. The maxillary sinuses are not completely seen in this study. IMPRESSION: No new intracranial abnormality is seen. Electronically signed by: Debra Marquez MD (07/27/2020 1:10 PM) [id number] DICTATED AND SIGNED BY: DEBRA MARQUEZ MD DATE: 07/27/20 1307 CC: SOFI LINO DO; ADELA ENGEL ~MTH0 0 Study: XR CHEST 1V Indication: Altered mental status. Comparison: 12/21/2018 Findings: Left chest wall multilead pacer. Limited assessment of the lungs due to low lung volumes. The cardiomediastinal silhouette appears prominent in size but accentuated by low lung volumes. Similar configuration of the franklin. No dense consolidation, layering effusion or pneumothorax. Redemonstrated severe deformity across the right glenohumeral joint. Again this could represent the sequela of avascular sclerosis, inflammatory/crystalline arthropathy or neuropathic arthropathy. Severe glenohumeral joint arthrosis on the left as well. 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 Impression: 1. No acute radiographic abnormality of the chest noting limited assessment on account of low lung volumes. 2. Chronic deformities of the right more so than left glenohumeral joints as also seen on the 07/31/2019 shoulder radiographs. Electronically signed by: JADEN ZHANG MD (07/27/2020 1:22 PM) [facility] DICTATED AND SIGNED BY: JADEN ZHANG MD DATE: 07/27/20 1319 CC: SOFI LINO DO; ADELA ENGEL ~MTH0 0 Heart Score: C/O Chest Pain: No Risk Factors: Risk Factors: DM, Current or recent (<one month) smoker, HTN, HLP, family history of CAD, obesity. Risk Scores: Score 0 - 3: 2.5% MACE over next 6 weeks - Discharge Home Score 4 - 6: 20.3% MACE over next 6 weeks - Admit for Clinical Observation Score 7 - 10: 72.7% MACE over next 6 weeks - Early Invasive Strategies Course & Med Decision Making: Course & Med Decision Making Pertinent Labs and Imaging studies reviewed. (See chart for details) The patient's labs are essentially unremarkable. Her head CT is negative for acute findings. See official read for more details. Her urinalysis shows large leukocyte esterase and greater than 40 white cells, but no bacteria. I will get a go ahead and treat her with a gram of Rocephin IV in the ED. The patient 's presentation is unusual and that she is able to follow directions most of the time. She is able to answer most questions, but does not seem able to put together sentences or long trains of thought. She follows instructions but not consistently. I spoke with Dr. Prather and he has accepted the patient for admission. Family is in agreement with the plan. [] Dragon Disclaimer: Dragon Disclaimer: This electronic medical record was generated, in whole or in part, using a voice recognition dictation system. Departure Departure: Impression: Primary Impression: Altered mental status Qualified Codes: R41.0 - Disorientation, unspecified Additional Impression: Head injury, closed Qualified Codes: S09.90XA - Unspecified injury of head, initial encounter Disposition: ADMITTED INPATIENT Admitting Physician: Audi Prather Condition: STABLE Referrals: ADELA ENGEL (PCP) SOFI LINO DO July 27, 2020 12:48
--- NOTE | 2020-07-27 13:12 | RAD ---
CT HEAD/BRAIN WO Clinical indications: Altered mental status. COMPARISON: October 31, 2019. Technique: Noncontrast axial cross sectional scanning of the head was performed. PQRS compliance Statement One or more of the following individualized dose reduction techniques were utilized for this study: 1. Automated exposure control 2. Adjustment of the mA and/or kV according to patient size 3. Use of iterative reconstruction technique Findings: No acute intracranial hemorrhage or midline shift or mass-effect or hydrocephalus or extra- axial fluid collection is seen. Chronic periventricular white matter hypodensity is seen consistent w ith chronic small vessel ischemic disease in this age group. No new focal hypodense area or sulci eff acement is seen to indicate an acute infarct or edema radiographically. No skull fracture or pneumoc ephalus is seen. No opacification of the mastoid sinuses or the middle ear cavities or the paranasal sinuses is seen. The maxillary sinuses are not completely seen in this study. IMPRESSION: No new intracranial abnormality is seen. Electronically signed by: Stoney Marquez MD (07/27/2020 1:10 PM) [id number]
[2020-07-27 13:16] LABS: BASO % 0 % (0-3); EOS # 0.2 x10^3/uL (0.0-0.7); EOS % 2 % (0-3); HEMATOCRIT 33.4 % (36.0-47.0); HEMOGLOBIN 11.2 g/dL (12.0-15.5); LYMPH # 0.5 x10^3/uL (1.0-4.8); LYMPH % 6 % (24-48); MEAN CORPUSCULAR HEMOGLOBIN 34 pg (25-35); MEAN CORPUSCULAR HGB CONC 34 g/dL (31-37); MEAN CORPUSCULAR VOLUME 102 fL (79-100); MONO # 0.9 x10^3/uL (0.0-1.1); MONO % 10 % (0-9); NEUT # 7.7 x10^3uL (1.8-7.7); NEUT % 83 % (31-73); PLATELET COUNT 260 x10^3/uL (140-400); RED BLOOD COUNT 3.27 x10^6/uL (3.50-5.40); RED CELL DISTRIBUTION WIDTH 13.6 % (11.5-14.5); WHITE BLOOD COUNT 9.3 x10^3/uL (4.0-11.0)
[2020-07-27 13:22] LABS: CALCIUM 8.9 mg/dL (8.5-10.1); CREATININE 1.1 mg/dL (0.6-1.0); GFR 47.1
--- NOTE | 2020-07-27 13:24 | EKG ---
[address] [address] Test Date: 2020-07-27 Test Time: 13:17:12 Pat Name: JONES RESENDEZ Department: Room: Gender: F Digital Developer: TERESITA : [id number] Requested By: SOFI LINO Order Number: [id number] Reading MD: Mark Castillo Measurements Intervals [place] Rate: 60 P: FL: QRS: 156 QRSD: 156 T: 89 QT: 524 QTc: 529 Interpretive Statements AV SEQUENTIAL PACED RHYTHM Electronically Signed On 07-29-2020 15:08:45 CDT by Mark Castillo
--- NOTE | 2020-07-27 13:25 | RAD ---
Study: XR CHEST 1V Indication: Altered mental status. Comparison: 12/21/2018 Findings: Left chest wall multilead pacer. Limited assessment of the lungs due to low lung volumes. The cardiomediastinal silhouette appears pro minent in size but accentuated by low lung volumes. Similar configuration of the franklin. No dense conso lidation, layering effusion or pneumothorax. Redemonstrated severe deformity across the right glenohumeral joint. Again this could represent the s equela of avascular sclerosis, inflammatory/crystalline arthropathy or neuropathic arthropathy. Sever e glenohumeral joint arthrosis on the left as well. 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 Impression: 1. No acute radiographic abnormality of the chest noting limited assessment on account of low lung vo lumes. 2. Chronic deformities of the right more so than left glenohumeral joints as also seen on the shoulder radiographs. Electronically signed by: JADEN ZHANG MD (07/27/2020 1:22 PM) [facility]
[2020-07-27 13:28] LABS: ALBUMIN 3.5 g/dL (3.4-5.0); ALBUMIN/GLOBULIN RATIO 0.7 (1.0-1.7); TOTAL BILIRUBIN 0.7 mg/dL (0.2-1.0); TOTAL PROTEIN 8.3 g/dL (6.4-8.2)
[2020-07-27 13:29] LABS: POTASSIUM 4.6 mmol/L (3.5-5.1)
[2020-07-27 13:43] LABS: BACTERIA,URINE 0 /HPF (0-FEW); BILIRUBIN,URINE NEG (NEG); CLARITY,URINE HAZY; COLOR,URINE YELLOW; GLUCOSE,URINE NEG (NEG); NITRITE,URINE NEG (NEG); SQUAMOUS EPITHELIAL CELL,UR FEW /LPF; UROBILINOGEN,URINE 0.2 mg/dL (0.2 mg/dL); WBC,URINE >40 /HPF (0-4)
[2020-07-27] MEDS ORDERED: IV NORMAL SALINE 50ML 50 ML ONE (14:15)
[2020-07-27] MEDS ORDERED: cefTRIAXone SODIUM 1 GM VIAL ONE (14:16)
[2020-07-27] MEDS ORDERED: ONDANSETRON PF 4 MG/2 ML VIAL. IVP PRN (14:45)
[2020-07-27 16:41] VITALS: BP 198/76
--- NOTE | 2020-07-27 17:19 | NUR ---
Admission note Pt admitted to room 109 via EMS from ED at 1500. pt is confused and inconstant with answering questions and a poor historian. called for clarification. unable to give medication list or report of family history and further past medical history. [facility] called in attempt to retrieve medication list.
[2020-07-27 19:01] VITALS: BP 157/65
[2020-07-27 22:39] VITALS: BP 184/82
[2020-07-28 05:06] VITALS: BP 183/82
[2020-07-28] MEDS ORDERED: MELA5TAB20 PO (08:58)
[2020-07-28] MEDS ORDERED: CARV12.5 PO (08:58)
[2020-07-28] MEDS ORDERED: FURO20TA3 PO (08:58)
[2020-07-28] MEDS ORDERED: PRAV40TA2 PO (08:58)
[2020-07-28] MEDS ORDERED: SACC250C8 PO (08:58)
[2020-07-28] MEDS ORDERED: MULT-245 PO (08:58)
[2020-07-28] MEDS ORDERED: TRAM50TA PO (08:58)
[2020-07-28] MEDS ORDERED: HYDR28CR62 TP (08:58)
[2020-07-28] MEDS ORDERED: LOPE2TAB27 PO (08:58)
[2020-07-28] MEDS ORDERED: CLOT12CR2 TP (08:58)
[2020-07-28] MEDS ORDERED: [UNRECOGNIZED DRUG - CODE] TP (08:58)
[2020-07-28] MEDS ORDERED: ONDA4TAB7 PO (08:58)
[2020-07-28] MEDS ORDERED: CIPR500S2 PO (08:58)
[2020-07-28] MEDS ORDERED: PROP15DR40 EACHEYE (08:58)
[2020-07-28] MEDS ORDERED: OMEP20TA63 PO (08:58)
[2020-07-28] MEDS ORDERED: WITC1MED TP (08:58)
[2020-07-28] MEDS ORDERED: DICL100G18 TP (08:58)
[2020-07-28] MEDS ORDERED: POLY17PO5 PO (08:58)
[2020-07-28] MEDS ORDERED: FERR325T14 PO (08:58)
[2020-07-28] MEDS ORDERED: HYDR-2867 PO (08:58)
[2020-07-28] MEDS ORDERED: ASCO500C PO (08:58)
[2020-07-28] MEDS ORDERED: GLUC-142 PO (08:58)
[2020-07-28] MEDS ORDERED: ALBU2.5V14 NEB (08:58)
[2020-07-28] MEDS ORDERED: BRIM5DRO3 EACHEYE (08:58)
[2020-07-28] MEDS ORDERED: ERGO800010 PO (08:58)
[2020-07-28] MEDS ORDERED: AMIO200T6 PO (08:58)
[2020-07-28] MEDS ORDERED: ACET325T21 PO (08:58)
[2020-07-28] MEDS ORDERED: NON FORMULARY ITEM (Albuterol Sulfate (Albuterol Sulfate Conc Neb Soln) 2.5 MG) NEB PRN (09:15)
[2020-07-28] MEDS ORDERED: traMADol 50 MG TABLET PO PRN (09:15)
[2020-07-28] MEDS ORDERED: LOPERAMIDE 2 MG CAPSULE PO PRN (09:45)
[2020-07-28] MEDS ORDERED: ALBUTEROL SULFATE 2.5 MG/3 ML NEBU. NEB PRN (10:00)
[2020-07-28] MEDS ORDERED: POLYVINYL ALCOHOL/POVIDONE/PF OPHTH SOLUTION DROPERETTE. OD PRN (10:15)
[2020-07-28] MEDS ORDERED: GLYCERIN/WITCH HAZEL TOPICAL PADS 40'S JAR. TP PRN (10:15)
[2020-07-28] MEDS ORDERED: HYDROCORTISONE 1% TOPICAL CREAM 30GM TUBE. TP PRN (10:15)
--- NOTE | 2020-07-28 10:18 | HP ---
ADMIT DATE: 07/27/2020 ATTENDING PHYSICIAN: Dr. Prather. CHIEF COMPLAINT: Altered mentation. HISTORY OF PRESENT ILLNESS: The patient is an 85-year-old female who is still living at home with her 86-year-old . She got out of bed, she fell bumping her head against the wall. She had a concussion. At first, she thought nothing of it, went back to bed. Yesterday morning, she was not making sense. She was using her spoon upside down. She could not speak properly. This lasted for about 3-1/2 hours. Her son brought her into the ED, she was confused, she was having some postconcussion syndrome. She was able to move her extremities, but had some word salad. CT of the head demonstrated no acute bleeds or strokes. She is much better now and getting close to baseline. She was admitted for observation and symptoms of a concussion following the head injury, closed head injury. PAST MEDICAL HISTORY: Significant for atrial fibrillation. She is not on any anticoagulation, anemia of chronic disease, anxiety, congestive heart failure, permanent pacemaker, chronic kidney disease. PAST SURGICAL HISTORY: Includes a permanent pacemaker. She has had a hip replacement and right elbow surgery. ALLERGIES: SHE HAS MULTIPLE ALLERGIES TO SULFA, CODEINE, METOLAZONE, NITROFURANTOIN, SULFAMETHOXAZOLE, TRIMETHOPRIM. CURRENT MEDICATIONS: Reviewed. She takes Coreg 12.5 mg b.i.d., Tylenol, albuterol, amiodarone 200 mg daily, Alphagan eyedrops, clotrimazole, diclofenac cream, vitamin D2, ferrous sulfate, Lasix, glucosamine, hydralazine, hydrocortisone cream, loperamide, multivitamin, omeprazole, MiraLax, pravastatin, tramadol p.r.n. and witch-desi. SOCIAL HISTORY: She is a nonsmoker, nondrinker. FAMILY HISTORY: Noncontributory. REVIEW OF SYSTEMS: Significant for a fall. She is fairly alert. She remembers what happened. She denied any chest pain, palpitation. She already has a walker. She states that she uses it. All other systems reviewed and turned to be negative. PHYSICAL EXAMINATION: GENERAL: When I saw her, this is a pleasant elderly female. INITIAL VITAL SIGNS: Showed blood pressure 153/65, pulse is 60 and regular. She was afebrile, oxygen saturation 93% on room air. HEENT: Head is without trauma. Pupils are reactive. Sclerae is nonicteric. The oropharynx is clear. NECK: Supple, no bruits. LUNGS: Clear. CARDIOVASCULAR: Showed regular heart tones. No gallops. ABDOMEN: Soft. EXTREMITIES: Without edema. NEUROLOGIC: Cranial nerves II-XII were intact. Her tongue was midline and did not deviate. Her slhses-afhj-jslvyk was adequate without any dysmetria. Her speech was fluent. Her quantitative analyst developer were intact and symmetrical. Her sensation was intact. IMAGING STUDIES: The obligatory CT of the head demonstrated no acute changes, bleeds or strokes. Chest x-ray was clear. There are chronic deformities of the left glenohumeral joint from degenerative arthritis. LABORATORY DATA: Her electrolytes within normal range. Creatinine is 1.1 mg percent. Hemoglobin and CBC are within normal range. ASSESSMENT: 1. An 85-year-old female who fell at home sustaining a closed head injury. She has an acute concussion. 2. Altered mentation related to concussion. 3. Essential hypertension. 4. Degenerative arthritis. 5. History of permanent pacemaker. PLAN: 1. Admit to the inpatient unit. 2. We will continue her home meds. 3. We will try to get physical therapy to see her to make assessment. 4. Diet as tolerated. LANCE DR: Radha TID: [id number]
[2020-07-28] MEDS: hydrALAZINE 10 MG TABLET PO SCH ×2 (11:07→20:52)
[2020-07-28] MEDS: CIPROFLOXACIN HCL 500 MG TABLET PO SCH (11:07)
[2020-07-28] MEDS: CHOLECALCIFEROL (VITAMIN D3) 1,000 UNIT TABLET PO SCH (11:08)
[2020-07-28] MEDS: AMIODARONE HCL 200 MG TABLET. PO SCH (11:08)
[2020-07-28] MEDS: FUROSEMIDE 20 MG TABLET PO SCH (11:09)
[2020-07-28] MEDS: CARVEDILOL 12.5 MG TABLET PO SCH ×2 (11:09→16:55)
[2020-07-28 13:28] VITALS: BP 120/61
--- NOTE | 2020-07-28 13:42 | NUR ---
Nursing note Pt has been experiencing urinary frequency and urgency, attempted to utilize a purewic on pt. pt declined. encouraged pt to attempt to ambulate and use bedside commode pt declined reporting feel unsafe to try yet will continue to educate pt on importance of ambulation and encourage ambulation.
--- NOTE | 2020-07-28 15:13 | NUR ---
Nursing note Pt ambulated to bedside commode successfully with slight hesitation.
[2020-07-28 15:59] VITALS: BP 164/72
[2020-07-28] MEDS: ONDANSETRON ODT 4 MG TAB.RAPDIS PO PRN (16:58)
[2020-07-28 19:00] VITALS: BP 150/80
[2020-07-28] MEDS: NON FORMULARY ITEM (Glucosamine/D3/Boswellia Serra (Osteo Bi-Flex Tablet) 1 EACH) PO SCH (20:50)
[2020-07-28] MEDS: UNDECYLENIC ACID TP SCH (20:50)
[2020-07-28] MEDS: FERROUS SULFATE 325 MG TABLET. PO SCH (20:51)
[2020-07-28] MEDS: MULTIVITAMIN with MINERAL TABLET. PO SCH (20:51)
[2020-07-28] MEDS: MELATONIN 3 MG TABLET PO SCH (20:51)
[2020-07-28] MEDS: LACTOBACILLUS RHAMNOSUS GG 1 CAPSULE. PO SCH (20:51)
[2020-07-28] MEDS: BRIMONIDINE 0.2% OPHTH SOLUTION 5ML BOTTLE. OU SCH (20:52)
[2020-07-28] MEDS ORDERED: CLOTRIMAZOLE 1% TOPICAL CREAM 30GM TUBE. TP PRN (21:00)
[2020-07-28] MEDS ORDERED: NYSTATIN TOPICAL POWDER 15GM BOTTLE. TP SCH (22:00)
[2020-07-28 22:35] VITALS: BP 179/82
[2020-07-28] MEDS: ACETAMINOPHEN 325 MG TABLET PO PRN (22:37)
[2020-07-29] MEDS: ACETAMINOPHEN 325 MG TABLET PO PRN ×3 (04:32→22:02)
[2020-07-29 05:47] VITALS: BP 178/74
[2020-07-29] MEDS: NYSTATIN TOPICAL POWDER 15GM BOTTLE. TP SCH ×2 (08:00→20:59)
[2020-07-29] MEDS: BRIMONIDINE 0.2% OPHTH SOLUTION 5ML BOTTLE. OU SCH ×2 (09:00→20:58)
[2020-07-29] MEDS: UNDECYLENIC ACID TP SCH ×2 (09:00→20:59)
[2020-07-29] MEDS: ASCORBIC ACID 1,000 MG TABLET PO SCH (09:00)
[2020-07-29] MEDS: NON FORMULARY ITEM (Glucosamine/D3/Boswellia Serra (Osteo Bi-Flex Tablet) 1 EACH) PO SCH ×2 (09:00→20:58)
--- NOTE | 2020-07-29 09:22 | PN ---
DATE: 07/29/2020 ATTENDING PHYSICIAN: Dr. Prather. SUBJECTIVE: The patient is weak. She is still dizzy and has trouble transferring independently. OBJECTIVE: VITAL SIGNS: Blood pressure this morning is 164/72, pulse is 60 and regular, she is afebrile, oxygen saturation 96% on room air. HEENT: Head is without trauma. Pupils are reactive. Sclerae nonicteric. Oropharynx clear. NECK: Supple, no bruits identified. LUNGS: Good breath sounds. CARDIOVASCULAR: Showed regular heart tones. No gallops. ABDOMEN: Soft. EXTREMITIES: Without edema. NEUROLOGIC: Function focally intact. PERTINENT LABORATORY STUDIES: The hemoglobin on admission was 11.2 grams, interestingly the MCV is elevated at 102. I am not aware of her drinking history. ASSESSMENT: 1. An 85-year-old female with frequent falls. 2. Closed head injury. 3. Concussion. 4. Post-concussion syndrome. She is still weak and dizzy. PLAN: 1. Home medications continued. 2. Blood pressure monitoring. 3. per physical therapy. 4. manager flight operations is working with the patient for subacute rehab placement. LANCE/ROBEL DR: Radha TID: [id number]
[2020-07-29] MEDS: LACTOBACILLUS RHAMNOSUS GG 1 CAPSULE. PO SCH ×2 (10:29→20:58)
[2020-07-29] MEDS: hydrALAZINE 10 MG TABLET PO SCH ×2 (10:29→20:58)
[2020-07-29] MEDS: PANTOPRAZOLE 40 MG TABLET. PO SCH (10:29)
[2020-07-29] MEDS: FUROSEMIDE 20 MG TABLET PO SCH (10:29)
[2020-07-29] MEDS: CHOLECALCIFEROL (VITAMIN D3) 1,000 UNIT TABLET PO SCH (10:30)
[2020-07-29] MEDS: CIPROFLOXACIN HCL 500 MG TABLET PO SCH (10:30)
[2020-07-29] MEDS: FERROUS SULFATE 325 MG TABLET. PO SCH ×2 (10:30→20:57)
[2020-07-29] MEDS: CARVEDILOL 12.5 MG TABLET PO SCH ×2 (10:30→17:00)
[2020-07-29] MEDS: AMIODARONE HCL 200 MG TABLET. PO SCH (10:34)
[2020-07-29 11:41] VITALS: BP 149/65
[2020-07-29 15:00] VITALS: BP 164/72
[2020-07-29] MEDS: POLYETHYLENE GLYCOL 3350 17 GM PACKET. PO PRN (16:00)
[2020-07-29 19:30] VITALS: BP 162/71
[2020-07-29] MEDS: MELATONIN 3 MG TABLET PO SCH (20:57)
[2020-07-29] MEDS: MULTIVITAMIN with MINERAL TABLET. PO SCH (20:57)
[2020-07-29 22:10] VITALS: BP 165/74
[2020-07-30] VITALS (7 sets, daily range): BP systolic 121–192; BP diastolic 56–83
[2020-07-30] MEDS ORDERED: ACETAMINOPHEN 325 MG TABLET PO ONE (04:19)
[2020-07-30] MEDS: ACETAMINOPHEN 325 MG TABLET PO PRN ×2 (04:22→11:21)
[2020-07-30] MEDS: AMIODARONE HCL 200 MG TABLET. PO SCH (07:09)
[2020-07-30] MEDS: PANTOPRAZOLE 40 MG TABLET. PO SCH (07:58)
[2020-07-30] MEDS: POLYETHYLENE GLYCOL 3350 17 GM PACKET. PO PRN (07:59)
[2020-07-30] MEDS: FUROSEMIDE 20 MG TABLET PO SCH (08:27)
[2020-07-30] MEDS: CHOLECALCIFEROL (VITAMIN D3) 1,000 UNIT TABLET PO SCH (08:27)
[2020-07-30] MEDS: CIPROFLOXACIN HCL 500 MG TABLET PO SCH (08:27)
[2020-07-30] MEDS: CARVEDILOL 12.5 MG TABLET PO SCH ×2 (08:27→17:54)
[2020-07-30] MEDS: FERROUS SULFATE 325 MG TABLET. PO SCH ×2 (08:28→20:25)
[2020-07-30] MEDS: DICLOFENAC SODIUM 1% TOPICAL GEL 100GM TUBE. TP PRN ×2 (08:28→17:54)
[2020-07-30] MEDS: hydrALAZINE 10 MG TABLET PO SCH ×2 (08:28→20:26)
[2020-07-30] MEDS: ASCORBIC ACID 1,000 MG TABLET PO SCH (08:28)
[2020-07-30] MEDS: LACTOBACILLUS RHAMNOSUS GG 1 CAPSULE. PO SCH ×2 (08:28→20:25)
[2020-07-30] MEDS: BRIMONIDINE 0.2% OPHTH SOLUTION 5ML BOTTLE. OU SCH ×2 (08:33→20:26)
[2020-07-30] MEDS: NYSTATIN TOPICAL POWDER 15GM BOTTLE. TP SCH ×2 (09:00→20:28)
[2020-07-30] MEDS: UNDECYLENIC ACID TP SCH ×2 (09:00→20:24)
[2020-07-30] MEDS: NON FORMULARY ITEM (Glucosamine/D3/Boswellia Serra (Osteo Bi-Flex Tablet) 1 EACH) PO SCH ×2 (09:00→20:23)
--- NOTE | 2020-07-30 18:44 | NUR ---
Nursing note Pt is resting comfortable in bed.
[2020-07-30] MEDS: MELATONIN 3 MG TABLET PO SCH (20:25)
[2020-07-30] MEDS: MULTIVITAMIN with MINERAL TABLET. PO SCH (20:25)
--- NOTE | 2020-07-30 22:40 | PN ---
DATE: 07/30/2020 SUBJECTIVE: The patient is sitting comfortably in her chair in no apparent respiratory distress. She continued to complain of pain in her back, but denied any other complaint. In particular denied any dizziness, lightheadedness or vertigo. She is currently working with physical therapy and they recommended the patient needs a [place] [facility] [place]. PHYSICAL EXAMINATION: GENERAL: When I saw her today, she looked well and was clearly in no apparent respiratory distress. She was pale, but no jaundice, cyanosis or thyromegaly. No jugular distention. No limb edema. VITAL SIGNS: Her heart rate was 60, blood pressure is 121/67, temperature was 97.6, respiratory rate was 18 and oxygen saturation was 97%. HEAD, EYES, EARS, NOSE AND THROAT: Normocephalic, atraumatic. NECK: Supple. HEART: Showed normal first and second heart sounds, no gallop, murmur. CHEST: Clear to auscultation, no crepitation or rhonchi. ABDOMEN: Distended, soft, nontender. NEUROLOGIC: She is awake, alert, responding appropriately. Cranial nerves intact. She moves extremities without difficulty. She ambulates with a walker. LABORATORY DATA: Her most recent lab work showed a serum sodium 130, potassium 4.6, chloride 94, bicarbonate 26, anion gap of 10, BUN 25, creatinine 1.1, estimated GFR was 47 mL per minute, her glucose 102, calcium was 8.9. Total bilirubin, AST, ALT, alkaline phosphatase were normal. Her total protein was 8.3, albumin was 3.5. Her white cell count was 9300, hemoglobin 11, hematocrit 33, MCV 102 and platelet count of 260,000. Urinalysis showed that the patient has more than 40 wbc's, large amount of leukocyte esterase. Her urine culture showed growth of 3 or more organisms, isolated results are consistent with colonization or contamination. PLAN: My plan is to obviously continue with all her current medication. I will check her orthostatics and continue with physical and occupational therapy. The patient is with a plan for her to be admitted to a [place] [facility] [place] facility. Our case preparer and liner is working ___ admitted to [facility], they accepted, they are waiting for the approval from the patient's insurance. CIERRA DR: Bg TID: [id number]
[2020-07-31] VITALS (7 sets, daily range): BP systolic 117–188; BP diastolic 51–80
[2020-07-31] MEDS: ACETAMINOPHEN 325 MG TABLET PO PRN ×3 (05:44→19:28)
[2020-07-31] MEDS: AMIODARONE HCL 200 MG TABLET. PO SCH (05:44)
[2020-07-31 07:05] LABS: HEMATOCRIT 31.8 % (36.0-47.0); HEMOGLOBIN 10.6 g/dL (12.0-15.5); RED BLOOD COUNT 3.09 x10^6/uL (3.50-5.40)
[2020-07-31] MEDS: NON FORMULARY ITEM (Glucosamine/D3/Boswellia Serra (Osteo Bi-Flex Tablet) 1 EACH) PO SCH ×2 (08:12→20:42)
[2020-07-31] MEDS: UNDECYLENIC ACID TP SCH ×2 (08:15→20:42)
[2020-07-31] MEDS: NYSTATIN TOPICAL POWDER 15GM BOTTLE. TP SCH ×2 (09:00→21:19)
[2020-07-31] MEDS: BRIMONIDINE 0.2% OPHTH SOLUTION 5ML BOTTLE. OU SCH ×2 (09:00→21:18)
[2020-07-31] MEDS: CIPROFLOXACIN HCL 500 MG TABLET PO SCH (09:11)
[2020-07-31] MEDS: PANTOPRAZOLE 40 MG TABLET. PO SCH (09:11)
[2020-07-31] MEDS: LACTOBACILLUS RHAMNOSUS GG 1 CAPSULE. PO SCH ×2 (09:11→21:18)
[2020-07-31] MEDS: FERROUS SULFATE 325 MG TABLET. PO SCH ×2 (09:11→21:18)
[2020-07-31] MEDS: CHOLECALCIFEROL (VITAMIN D3) 1,000 UNIT TABLET PO SCH (09:11)
[2020-07-31] MEDS: hydrALAZINE 10 MG TABLET PO SCH (09:11)
[2020-07-31] MEDS: FUROSEMIDE 20 MG TABLET PO SCH (09:12)
[2020-07-31] MEDS: POLYETHYLENE GLYCOL 3350 17 GM PACKET. PO PRN (09:12)
[2020-07-31] MEDS: CARVEDILOL 12.5 MG TABLET PO SCH ×2 (09:13→16:05)
[2020-07-31] MEDS: ASCORBIC ACID 1,000 MG TABLET PO SCH (09:13)
[2020-07-31 11:49] LABS: ALBUMIN 3.3 g/dL (3.4-5.0); ALBUMIN/GLOBULIN RATIO 0.8 (1.0-1.7); CREATININE 1.1 mg/dL (0.6-1.0); GFR 47.1; POTASSIUM 4.4 mmol/L (3.5-5.1); TOTAL BILIRUBIN 0.5 mg/dL (0.2-1.0); TOTAL PROTEIN 7.4 g/dL (6.4-8.2)
[2020-07-31] MEDS: hydrALAZINE 25 MG TABLET PO SCH ×2 (16:04→21:18)
[2020-07-31] MEDS: LIDOCAINE (700MG/PATCH) PATCH. TD SCH (16:05)
[2020-07-31] MEDS: DICLOFENAC SODIUM 1% TOPICAL GEL 100GM TUBE. TP PRN (19:28)
[2020-07-31] MEDS ORDERED: PATCH REMOVAL. MC SCH (21:00)
[2020-07-31] MEDS: MELATONIN 3 MG TABLET PO SCH (21:18)
[2020-07-31] MEDS: MULTIVITAMIN with MINERAL TABLET. PO SCH (21:18)
[2020-07-31] MEDS: ONDANSETRON ODT 4 MG TAB.RAPDIS PO PRN (22:15)
--- NOTE | 2020-07-31 22:18 | PN ---
DATE: 07/31/2020 SUBJECTIVE: The patient is resting, slightly propped up in bed in no apparent distress. She continued to complain of chest pain, mostly in the left side; however, she did very well today, has been participating with physical therapy. Denied any dizziness or lightheadedness. Denied any fall. PHYSICAL EXAMINATION: GENERAL: When I examined her, she was pale. No jaundice, cyanosis or thyromegaly. No jugular distention. No limb edema. VITAL SIGNS: Her heart rate was 61, blood pressure 177/68, temperature 97.3, respiratory rate was 20 and oxygen saturation was 96% on room air. HEAD, EYES, EARS, NOSE AND THROAT: Normocephalic, atraumatic. NECK: Supple. HEART: Showed normal first and second heart sounds, no gallop, murmur. CHEST: Clear to auscultation, no crepitation or rhonchi. ABDOMEN: Distended, soft, nontender. NEUROLOGIC: She is awake, alert, responding appropriately. Cranial nerves intact. She moves without difficulty. She ambulates with a walker with standby assist. Her intake over the last 24 hours was 1440. No output was recorded. LABORATORY DATA: This morning showed a white cell count of 9000, hemoglobin 11, hematocrit 32, MCV 103 and platelet count 242,000. Her chemistry showed a serum sodium 131, potassium 4.4, chloride 97, bicarbonate 27, anion gap of 7, BUN 24, creatinine 1.1. Estimated GFR was 47 mL per minute. Her glucose was 84, calcium was 9. Total bilirubin, AST, ALT, alkaline phosphatase were normal. Total protein 7.4, albumin 3.3. ASSESSMENT: The patient has no further episodes of dizziness, lightheadedness, or vertigo. Hypertension, suboptimally controlled. I did increase hydralazine to 25 mg 3 times a day. Glaucoma, for which she is on brimonidine. Other medical problems include atrial fibrillation, anemia of chronic kidney disease, anxiety, congestive heart failure, and chronic kidney disease. ROBBY DR: Bg TID: [id number]
[2020-08-01] MEDS: ACETAMINOPHEN 325 MG TABLET PO PRN ×2 (03:21→09:23)
[2020-08-01] MEDS: DICLOFENAC SODIUM 1% TOPICAL GEL 100GM TUBE. TP PRN ×2 (03:25→09:24)
[2020-08-01 06:10] VITALS: BP 167/80
[2020-08-01] MEDS: PANTOPRAZOLE 40 MG TABLET. PO SCH (07:51)
[2020-08-01] MEDS: ONDANSETRON ODT 4 MG TAB.RAPDIS PO PRN (07:51)
[2020-08-01] MEDS: UNDECYLENIC ACID TP SCH (09:00)
[2020-08-01] MEDS: NYSTATIN TOPICAL POWDER 15GM BOTTLE. TP SCH (09:00)
[2020-08-01] MEDS: NON FORMULARY ITEM (Glucosamine/D3/Boswellia Serra (Osteo Bi-Flex Tablet) 1 EACH) PO SCH (09:00)
[2020-08-01] MEDS: AMIODARONE HCL 200 MG TABLET. PO SCH (09:22)
[2020-08-01] MEDS: LIDOCAINE (700MG/PATCH) PATCH. TD SCH (09:22)
[2020-08-01] MEDS: CHOLECALCIFEROL (VITAMIN D3) 1,000 UNIT TABLET PO SCH (09:23)
[2020-08-01] MEDS: CARVEDILOL 12.5 MG TABLET PO SCH (09:23)
[2020-08-01] MEDS: FERROUS SULFATE 325 MG TABLET. PO SCH (09:23)
[2020-08-01] MEDS: CIPROFLOXACIN HCL 500 MG TABLET PO SCH (09:23)
[2020-08-01] MEDS: hydrALAZINE 25 MG TABLET PO SCH ×2 (09:23→14:32)
[2020-08-01] MEDS: LACTOBACILLUS RHAMNOSUS GG 1 CAPSULE. PO SCH (09:23)
[2020-08-01] MEDS: BRIMONIDINE 0.2% OPHTH SOLUTION 5ML BOTTLE. OU SCH (09:24)
[2020-08-01] MEDS: ASCORBIC ACID 1,000 MG TABLET PO SCH (09:24)
--- NOTE | 2020-08-01 10:33 | DISCH ---
DISCHARGE ORDERS DISCHARGE DATE: Aug 01, 2020 FINAL DIAGNOSIS recurrent falls concussion post concussion syndrome CONDITION AT DISCHARGE: Stable Code Status: DNR/DNI SNF STAY <30 DAYS: Yes POST DISCHARGE ORDERS: ACTIVITY ORDERS: Activity as tolerated WEIGHT BEARING STATUS: Full weight bearing BATHING ORDERS: No Tub Bath until see DIET AFTER DISCHARGE: Cardiac TREATMENT/EQUIPMENT ORDERS: ADAPTIVE EQUIPMENT NEEDED: None DISCHARGE MEDICATIONS: Home Meds Reported Medications Acetaminophen (ACETAMINOPHEN) 325 Mg Tablet, 1 TAB PO PRN Q6HRS PRN for pain or fever for 30 Days, #30 TAB 0 Refills 07/28/20 Brimonidine Tartrate (ALPHAGAN P) 5 Ml Drops, 1 DROP EACHEYE BID for glaucoma, #10 ML 3 Refills 07/28/20 Amiodarone Hcl (AMIODARONE HCL) 200 Mg Tablet, 200 MG PO DAILY for afib, TAB 07/28/20 Ergocalciferol (Vitamin D2) (Ergocalciferol) 200 Mcg/1 Ml Drops, 50 MCG PO DAILY for ., DROP 07/28/20 Ferrous Sulfate (FERROUS SULFATE) 325 Mg Tablet, 1 TAB PO BID for supplement, #60 TAB 3 Refills 07/28/20 Hydralazine Hcl (HYDRALAZINE HCL) 10 Mg Tablet, 10 MG PO BID for high blood pressure, TAB 07/28/20 Melatonin (MELATONIN) 5 Mg Tab.rapdis, 1 TAB PO QHS for sleep for 30 Days, #30 TAB 0 Refills 07/28/20 Polyethylene Glycol 3350 (MIRALAX) 17 Gm Powd.pack, 1 PACKET PO PRN DAILY for . for 2 Days, PACKET 0 Refills dissolve in water 07/28/20 Multivitamin (MULTI VITAMIN DAILY) 1 Each Tablet, 1 TAB PO HS for supplement for 30 Days, #30 TAB 0 Refills 07/28/20 Glucosamine/D3/Boswellia Kaley (Osteo Bi-Flex Tablet) 1 Each Tablet, 1 EACH PO BID for ., TAB 07/28/20 Pravastatin Sodium (PRAVASTATIN SODIUM) 40 Mg Tablet, 40 MG PO HS for high cholesterol, TAB 07/28/20 Omeprazole Magnesium (PRILOSEC OTC) 20 Mg Tablet.dr, 40 MG PO BIDBFRMEAL PRN PRN for ., TAB 07/28/20 Saccharomyces Boulardii (Probiotic) 250 Mg Capsule, 1 CAP PO BID for . for 14 Days, #28 CAP 0 Refills 07/28/20 Propylene Glycol/Peg 400 (SYSTANE 0.3-0.4% EYE DROPS) 15 Ml Drops, 1 DROP EACHEYE QID for ., #30 ML 5 Refills 07/28/20 Ascorbic Acid (VITAMIN C) 500 Mg Capsule.er, 2 CAP PO DAILY for supplement for 30 Days, #60 CAP 0 Refills 07/28/20 Ondansetron Hcl (ZOFRAN) 4 Mg Tablet, 4 MG PO PRN Q8HRS PRN for ., TAB 07/28/20 Diclofenac Sodium (VOLTAREN) 100 Gm Gel..gram., 1 GM TP QID for pain for 30 Days, #1 EACH 0 Refills apply to affected area(s) 07/28/20 Loperamide Hcl (LOPERAMIDE) 2 Mg Tablet, 2 TAB PO Q4HRS for loose stool for 30 Days, #360 TAB 0 Refills 07/28/20 Fauzia Barone (PREPARATION H) 1 Each Med..pad, 1 EACH TP PRN 3-4XD PRN for ., PAD 07/28/20 Tramadol Hcl (TRAMADOL HCL) 50 Mg Tablet, 50 MG PO PRN Q6HRS PRN for PAIN, TAB 07/28/20 Albuterol Sulfate (ALBUTEROL SULFATE CONC NEB SOLN) 2.5 Mg/0.5 Ml Vial.neb, 2.5 MG NEB PRN BID PRN for SHORTNESS OF BREATH, EACH 0 Refills 07/28/20 Undecylenic Acid (Fungi-Nail) 3 Ml Solution, 3 ML TP BID for ., MISC 07/28/20 Clotrimazole (LOTRIMIN AF) 12 Gm Cream..g., 1 TREVON TP BID for fungal , #24 GM 1 Refill 07/28/20 Hydrocortisone/Aloe Vera (Cortizone-10 1% Creme) 28 Gm Cream..g., 28 GM TP BID for Skin integrity , EACH 07/28/20 Carvedilol (COREG ) 12.5 Mg Tablet, 12.5 MG PO BIDWMEALS for CARDIAC, TAB 07/28/20 Ciprofloxacin (CIPRO) 500 Mg/5 Ml Klaudia.mc.rec, 500 MG PO DAILY for chronic UTI, MISC 07/28/20 Furosemide (FUROSEMIDE) 20 Mg Tablet, 20 MG PO DAILY for ., TAB 07/28/20 JEREMY KIRBY MD Aug 01, 2020 10:33
[2020-08-01 11:00] VITALS: BP 136/72
[2020-08-01 14:32] VITALS: BP 136/72
--- NOTE | 2020-08-01 14:46 | NUR ---
pt belongings packed, tele removed, pt did not have piv. pt packet and belongings sent with her and transporter. report called to [phone]. Addendum: 08/01/20 at 1509 by MIKE ZARAOGZA RN Report given to Lucinda
== END 2020-08-01 15:13 | DRG 640 ==
LOC: ER 12:22 → UNDOADMIN 14:37 → 1 SOUTH 14:37 → OBSVTOIN 17:11
PROVIDERS: ADMIT Hospitalist; ATTEND Hospitalist
DX: E87.1 Hypo-osmolality and hyponatremia (principal); G93.41 Metabolic encephalopathy; S06.9X9A Unspecified intracranial injury with loss of consciousness of unspecified duration, initial encounter; I13.0 Hypertensive heart and chronic kidney disease with heart failure and stage 1 through stage 4 chronic kidney disease, or unspecified chronic kidney disease; F07.81 Postconcussional syndrome; D63.1 Anemia in chronic kidney disease; F41.9 Anxiety disorder, unspecified; H40.9 Unspecified glaucoma; I48.91 Unspecified atrial fibrillation; I50.9 Heart failure, unspecified; M19.90 Unspecified osteoarthritis, unspecified site; N18.9 Chronic kidney disease, unspecified; Z96.649 Presence of unspecified artificial hip joint; W01.0XXA Fall on same level from slipping, tripping and stumbling without subsequent striking against object, initial encounter; Z20.822 Contact with and (suspected) exposure to COVID-19; Z95.0 Presence of cardiac pacemaker; Z88.5 Allergy status to narcotic agent; Z88.2 Allergy status to sulfonamides; Z88.8 Allergy status to other drugs, medicaments and biological substances; Y93.89 Activity, other specified; Y92.89 Other specified places as the place of occurrence of the external cause; Y99.8 Other external cause status
CPT/HCPCS: 36415; 70450; 71045; 80053; 81001; 84484; 85025; 85027; 87086; 87426; 93005; 96361; 96365; G0378; G0379; J0696; J7040; Q0162; U0003; 97110; 97116; 97530; 97535; 99285-25